=== PATIENT | male | born 1940 | race Caucasian/White ===

== ENCOUNTER → 2016-10-22 | Outpatient (CLI) | payer MEDICARE ==
[2016-10-22 10:49] LABS: Basophils # (A) 0.1 k/uL (0-0.2); Basophils % (A) 1 %; CH 35.7; CHCM 34.3; Eosinophils # (A) 0.2 k/uL (0-0.7); Eosinophils % (A) 3 %; HCT 49.4 % (39.0-53.0); HDW 2.75; HGB 16.6 gm/dL (13.0-17.5); Luc # (Auto) 0.22; Luc % (Auto) 3; Lymphocytes # (A) 2.3 k/uL (1.0-4.8); Lymphocytes % (A) 33 %; MCH 35.2 pg (25.0-35.0); MCHC 33.6 g/dL (31.0-37.0); MCV 104.8 fL (80.0-100.0); Macrocytosis Moderate; Mean Platelet Volume 7.9; Monocytes # (A) 0.5 k/uL (0-1.0); Monocytes % (A) 7 %; Neutrophils # (A) 3.5 k/uL (1.3-7.7); Neutrophils % (A) 52 %; RBC 4.72 m/uL (4.30-5.90); WBC 6.8 k/uL (3.8-10.6)
[2016-10-22 11:25] LABS: Appearance,Urine Clear (Clear); Bilirubin,Urine Negative (Negative); Glucose,Urine (UA) Negative (Negative); Ketones,Urine Negative (Negative); Leukocyte Esterase,Urine Negative (Negative); Nitrite,Urine Negative (Negative); Particle Count 337; Protein,Urine 1+ (Negative); RBC,Urine 1 /hpf (0-5); Specific Gravity,Urine 1.015 (1.001-1.035); UA Billing (MACRO vs. MICRO) MICRO; Urobilinogen,Urine <2.0 mg/dL (<2.0); WBC,Urine 1 /hpf (0-5)
[2016-10-22 11:34] LABS: Calcium 9.5 mg/dL (8.4-10.2); Magnesium 1.9 mg/dL (1.6-2.3); Phosphorous 4.1 mg/dL (2.5-4.5); Potassium 4.3 mmol/L (3.5-5.1); Total Bilirubin 0.9 mg/dL (0.2-1.3); Total Protein 7.4 g/dL (6.3-8.2)
[2016-10-22 11:43] LABS: % Iron Saturation 32.1 % (20-50)
== END | disposition home or self-care (01) ==
LOC: LABWHC1 10:12
PROVIDERS: ATTEND Internal Medicine Interventional Cardiology
DX: R60.0 Localized edema (principal)
CPT/HCPCS: 36415; 80053; 80061; 81001; 82306; 82728; 83540; 83550; 83735; 83880; 83970; 84100; 84550; 85025

== ENCOUNTER → 2016-10-28 | Outpatient (CLI) | payer MEDICARE ==
--- NOTE | 2016-10-29 07:48 | ECHOF ---
Referral Reason:Localized Edema R60.0 MEASUREMENTS -------- HEIGHT: 177.8 cm WEIGHT: 106.6 kg BP: 184/96 RVIDd: 3.1 cm (< 3.3) IVSd: 1.4 cm (0.6 - 1.1) LVIDd: 3.7 cm (3.9 - 5.3) LVPWd: 1.3 cm (0.6 - 1.1) IVSs: 1.9 cm LVIDs: 2.5 cm LVPWs: 1.8 cm LA Diam: 3.6 cm (2.7 - 3.8) LAESV Index (A-L): 18.67 ml/m Ao Diam: 3.1 cm (2.0 - 3.7) AV Cusp: 2.0 cm (1.5 - 2.6) MV EXCURSION: 9.957 mm (> 18.000) MV EF SLOPE: 20 mm/s (70 - 150) EPSS: 0.8 cm AV maxP.48 mmHg AV meanP.80 mmHg RAP: 5.00 mmHg RVSP: 41.89 mmHg FINDINGS -------- This was a technically difficult study with suboptimal views. The left ventricular size is normal. There is moderate concentric left ventricular hypertrophy. Overall left ventricular systolic function is mild-moderately impaired with, an EF between 40 - 45 %. Apical anterior LV wall motion is hypokinetic. Apical lateral LV wall motion is hypokinetic. Apical inferior LV wall motion is hypokinetic. Apical septum LV wall motion is hypokinetic. The right ventricle is normal in size. Normal LA size by volume 22+/-6 ml/m2. The right atrium is normal in size. 1.5mg of Definity was utilized for enhancement of images Aortic valve is trileaflet and is mildly thickened. Mild mitral annular calcification present. Mild tricuspid regurgitation present. There is mild pulmonary hypertension. The right ventricular systolic pressure, as measured by Doppler, is 41.89mmHg. Trace/mild (physiologic) pulmonic regurgitation. The aortic root size is normal. The inferior vena cava is mildly dilated. The pericardium is normal. CONCLUSIONS -------- 1. This was a technically difficult study with suboptimal views. 2. Normal LA size by volume 22+/-6 ml/m2. 3. 1.5mg of Definity was utilized for enhancement of images 4. Aortic valve is trileaflet and is mildly thickened. 5. Mild mitral annular calcification present. 6. Mild tricuspid regurgitation present. 7. There is mild pulmonary hypertension. 8. The right ventricular systolic pressure, as measured by Doppler, is 41.89mmHg. 9. Trace/mild (physiologic) pulmonic regurgitation. 10. The aortic root size is normal. 11. The inferior vena cava is mildly dilated. 12. The left ventricular size is normal. 13. The pericardium is normal. 14. There is moderate concentric left ventricular hypertrophy. 15. Overall left ventricular systolic function is mild-moderately impaired with, an EF between 40 - 45 %. 16. Apical anterior LV wall motion is hypokinetic. 17. Apical lateral LV wall motion is hypokinetic. 18. Apical inferior LV wall motion is hypokinetic. 19. Apical septum LV wall motion is hypokinetic. 20. The right ventricle is normal in size. TOWER OPERATOR: Tanisha Stearns RDCS
== END | disposition home or self-care (01) ==
LOC: RADECHMAIN 14:19
PROVIDERS: ATTEND Family Medicine
DX: I07.1 Rheumatic tricuspid insufficiency (principal); I35.8 Other nonrheumatic aortic valve disorders; I05.9 Rheumatic mitral valve disease, unspecified; I27.2 Other secondary pulmonary hypertension; I37.1 Nonrheumatic pulmonary valve insufficiency
CPT/HCPCS: C8929; Q9957; 93306

== ENCOUNTER 2016-12-27 12:59 | Emergency (ER) | payer OTHER, MEDICARE ==
[2016-12-27 13:16] LABS: Glucose,Whole Blood 146 mg/dL (75-99)
[2016-12-27 13:39] LABS: Basophils # (A) 0.1 k/uL (0-0.2); Basophils % (A) 1 %; CH 34.9; Eosinophils # (A) 0.2 k/uL (0-0.7); Eosinophils % (A) 3 %; HDW 2.65; HGB 16.5 gm/dL (13.0-17.5); Luc # (Auto) 0.19; Luc % (Auto) 3; Lymphocytes # (A) 1.8 k/uL (1.0-4.8); Lymphocytes % (A) 23 %; MCH 34.7 pg (25.0-35.0); MCHC 33.6 g/dL (31.0-37.0); MCV 103.4 fL (80.0-100.0); Macrocytosis Slight; Mean Platelet Volume 7.4; Monocytes # (A) 0.4 k/uL (0-1.0); Monocytes % (A) 6 %; Neutrophils # (A) 4.9 k/uL (1.3-7.7); Neutrophils % (A) 65 %; RBC 4.74 m/uL (4.30-5.90); RDW 14.7 % (11.5-15.5); WBC 7.5 k/uL (3.8-10.6)
[2016-12-27] MEDS ORDERED: RX INFO: IV CONTRAST WAS GIVEN 1 EACH MISC MISCELLANE PRN (13:44)
[2016-12-27 13:48] LABS: INR 1.2 (<1.2); Partial Thromboplastin Time 24.9 sec (22.0-30.0); Prothrombin Time 11.7 sec (9.0-12.0)
[2016-12-27 13:50] LABS: ALT 48 U/L (21-72); AST 50 U/L (17-59); Alcohol <10 mg/dL; Alkaline Phosphatase 67 U/L (38-126); Amylase 43 U/L (30-110); Anion Gap 10 mmol/L; Blood Urea Nitrogen 22 mg/dL (9-20); Calcium 8.8 mg/dL (8.4-10.2); Carbon Dioxide 23 mmol/L (22-30); Chloride 107 mmol/L (98-107); Glucose 142 mg/dL (74-99); Non-African American GFR(MDRD) 45 (>60 ml/min/1.73 sqM); Potassium 4.1 mmol/L (3.5-5.1); Sodium 140 mmol/L (137-145); Total Bilirubin 0.7 mg/dL (0.2-1.3); Total Protein 6.8 g/dL (6.3-8.2)
[2016-12-27 13:56] LABS: Appearance,Urine Clear (Clear); Bilirubin,Urine Negative (Negative); Glucose,Urine (UA) Negative (Negative); Ketones,Urine Negative (Negative); Leukocyte Esterase,Urine Negative (Negative); Nitrite,Urine Negative (Negative); PH, Urine 5.5 (5.0-8.0); Protein,Urine Negative (Negative); Specific Gravity,Urine 1.005 (1.001-1.035); UA Billing (MACRO vs. MICRO) CHEM; Urobilinogen,Urine <2.0 mg/dL (<2.0)
[2016-12-27 13:58] LABS: Creatine Kinase 158 U/L (55-170)
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
[2016-12-27 14:10] LABS: Troponin I <0.012 ng/mL (0.000-0.034)
[2016-12-27 14:15] LABS: Creatine Kinase MB 2.7 ng/mL (0.0-2.4)
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
[2016-12-27] MEDS ORDERED: HYDROmorphone 1 MG/ML 1 ML SYRINGE IVP STA ×4 (15:20→17:41)
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
[2016-12-27] MEDS ORDERED: IPRATROPIUM-ALBUTEROL 3 ML NEB INHALATION STA (17:46)
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
[2016-12-27 18:50] VITALS: BP 150/60; PULSE 88; RESP 18; TEMP 98
== END 2016-12-27 18:45 | disposition other institution (70) ==
LOC: EC 12:59
DX: S22.069A Unspecified fracture of T7-T8 vertebra, initial encounter for closed fracture (principal); S22.079A Unspecified fracture of T9-T10 vertebra, initial encounter for closed fracture; S27.321A Contusion of lung, unilateral, initial encounter; S27.892A Contusion of other specified intrathoracic organs, initial encounter; V89.2XXA Person injured in unspecified motor-vehicle accident, traffic, initial encounter; J44.9 Chronic obstructive pulmonary disease, unspecified; I51.7 Cardiomegaly; M54.2 Cervicalgia; I10 Essential (primary) hypertension; E78.5 Hyperlipidemia, unspecified; I51.9 Heart disease, unspecified; N28.9 Disorder of kidney and ureter, unspecified; Z95.0 Presence of cardiac pacemaker; Z79.82 Long term (current) use of aspirin; Z79.899 Other long term (current) drug therapy; Z88.2 Allergy status to sulfonamides; Z88.8 Allergy status to other drugs, medicaments and biological substances; Z95.5 Presence of coronary angioplasty implant and graft; Z87.891 Personal history of nicotine dependence
CPT/HCPCS: 36415; 94640; 93005; 86900; 86901; 80053; 82150; 82550; 82553; 83690; 84484; 85025; 85610; 85730; 86850; 81003; 80306; 80320; 71010; 72020; 72170; 71260; 74177; 99291; 96374; 96376; Q9967; J1170

== ENCOUNTER → 2017-04-01 | Outpatient (CLI) | payer MEDICARE ==
[2017-04-01 11:56] LABS: ALT 45 U/L (21-72); AST 43 U/L (17-59); Alkaline Phosphatase 91 U/L (38-126); Anion Gap 12 mmol/L; Blood Urea Nitrogen 18 mg/dL (9-20); Calcium 9.3 mg/dL (8.4-10.2); Carbon Dioxide 25 mmol/L (22-30); Chloride 106 mmol/L (98-107); Cholesterol 120 mg/dL (<200); Glucose 122 mg/dL (74-99); HDL Cholesterol 47 mg/dL (40-60); Magnesium 1.8 mg/dL (1.6-2.3); Non-African American GFR(MDRD) 50 (>60 ml/min/1.73 sqM); Phosphorous 4.6 mg/dL (2.5-4.5); Potassium 4.5 mmol/L (3.5-5.1); Sodium 143 mmol/L (137-145); Total Bilirubin 0.4 mg/dL (0.2-1.3)
[2017-04-01 11:58] LABS: Appearance,Urine Clear (Clear); Bilirubin,Urine Negative (Negative); Glucose,Urine (UA) Negative (Negative); Ketones,Urine Negative (Negative); Leukocyte Esterase,Urine Negative (Negative); Mucus,Urine Rare /hpf; Nitrite,Urine Negative (Negative); PH, Urine 5.5 (5.0-8.0); Particle Count 638; Protein,Urine 1+ (Negative); Specific Gravity,Urine 1.014 (1.001-1.035); UA Billing (MACRO vs. MICRO) MICRO; Urobilinogen,Urine <2.0 mg/dL (<2.0); WBC,Urine 1 /hpf (0-5)
[2017-04-01 12:33] LABS: Basophils # (A) 0.1 k/uL (0-0.2); Basophils % (A) 1 %; CH 35.1; CHCM 32.3; Eosinophils # (A) 0.3 k/uL (0-0.7); Eosinophils % (A) 5 %; HCT 49.5 % (39.0-53.0); HDW 2.65; HGB 15.1 gm/dL (13.0-17.5); Luc # (Auto) 0.16; Luc % (Auto) 2; Lymphocytes # (A) 2.2 k/uL (1.0-4.8); Lymphocytes % (A) 32 %; MCH 33.4 pg (25.0-35.0); MCHC 30.6 g/dL (31.0-37.0); MCV 109.4 fL (80.0-100.0); Macrocytosis Marked; Mean Platelet Volume 7.9; Monocytes # (A) 0.4 k/uL (0-1.0); Monocytes % (A) 6 %; Neutrophils # (A) 3.8 k/uL (1.3-7.7); Neutrophils % (A) 55 %; RBC 4.53 m/uL (4.30-5.90); RDW 15.2 % (11.5-15.5); WBC 6.9 k/uL (3.8-10.6); WBC (Perox) 6.56
[2017-04-01 14:15] LABS: Manual Review Performed
[2017-04-01 15:28] LABS: Iron Saturation 25.37 (15.00-50.00)
== END | disposition home or self-care (01) ==
LOC: LABWHC1 10:59
PROVIDERS: ATTEND Internal Medicine Interventional Cardiology
DX: E55.9 Vitamin D deficiency, unspecified (principal); E21.3 Hyperparathyroidism, unspecified; M10.9 Gout, unspecified; N39.0 Urinary tract infection, site not specified; D63.1 Anemia in chronic kidney disease; N18.3 Chronic kidney disease, stage 3 (moderate); E78.2 Mixed hyperlipidemia
CPT/HCPCS: 36415; 80053; 80061; 81001; 82306; 82728; 83540; 83550; 83735; 83970; 84100; 84550; 85025

== ENCOUNTER → 2017-11-11 | Outpatient (CLI) | payer MEDICARE ==
[2017-11-11 10:36] LABS: Basophils % (A) 0 %; Eosinophils # (A) 0.3 k/uL (0-0.7); Eosinophils % (A) 4 %; HCT 45.8 % (39.0-53.0); HGB 15.6 gm/dL (13.0-17.5); Lymphocytes # (A) 1.8 k/uL (1.0-4.8); Lymphocytes % (A) 28 %; MCH 34.8 pg (25.0-35.0); MCHC 34.2 g/dL (31.0-37.0); MCV 101.7 fL (80.0-100.0); Macrocytosis Slight; Mean Platelet Volume 7.6; Monocytes # (A) 0.5 k/uL (0-1.0); Monocytes % (A) 7 %; Neutrophils # (A) 3.7 k/uL (1.3-7.7); Neutrophils % (A) 58 %; Platelet Count 153 k/uL (150-450); RDW 14.6 % (11.5-15.5); WBC 6.3 k/uL (3.8-10.6)
[2017-11-11 10:43] LABS: Appearance,Urine Clear (Clear); Bilirubin,Urine Negative (Negative); Blood,Urine Negative (Negative); Color,Urine Yellow; Glucose,Urine (UA) Negative (Negative); Ketones,Urine Negative (Negative); Leukocyte Esterase,Urine Negative (Negative); Nitrite,Urine Negative (Negative); Protein,Urine Trace (Negative); Specific Gravity,Urine 1.011 (1.001-1.035); Urobilinogen,Urine <2.0 mg/dL (<2.0)
[2017-11-11 10:55] LABS: Calcium 9.3 mg/dL (8.4-10.2); Magnesium 1.7 mg/dL (1.6-2.3); Phosphorus 4.5 mg/dL (2.5-4.5); Potassium 4.5 mmol/L (3.5-5.1); Total Bilirubin 0.5 mg/dL (0.2-1.3); Total Protein 6.6 g/dL (6.3-8.2); Uric Acid 5.5 mg/dL (3.5-8.5)
[2017-11-11 17:32] LABS: Iron Saturation 16.94 (15.00-50.00)
[2017-11-11 17:39] LABS: Vitamin D 25 Hydroxy 34.5 ng/mL (30.0-100.0)
[2017-11-11 18:12] LABS: Parathyroid Hormone Intact 57.5 pg/mL (14.0-72.0)
== END | disposition home or self-care (01) ==
LOC: LABWHC1 09:22
PROVIDERS: ATTEND Internal Medicine Interventional Cardiology
DX: Z00.00 Encounter for general adult medical examination without abnormal findings (principal); E78.2 Mixed hyperlipidemia; N18.3 Chronic kidney disease, stage 3 (moderate); D64.9 Anemia, unspecified; E55.9 Vitamin D deficiency, unspecified; N25.81 Secondary hyperparathyroidism of renal origin; M10.9 Gout, unspecified; N39.0 Urinary tract infection, site not specified
CPT/HCPCS: 36415; 80053; 80061; 81003; 82306; 82728; 83540; 83550; 83735; 83970; 84100; 84153; 84550; 85025

== ENCOUNTER → 2018-01-22 | Outpatient (CLI) | payer OTHER ==
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
--- NOTE | 2018-01-22 13:07 | CT ---
EXAMINATION TYPE: CT lumbar spine wo con DATE OF EXAM: 01/22/2018 COMPARISON: CT 12/27/2016 HISTORY: 77-year-old male complains of back pain. TECHNIQUE: Contiguous axial scanning of the lumbar spine without IV contrast. Coronal and sagittal re constructions performed. CT DLP: 1818.3 mGycm Automated exposure control for dose reduction was used. FINDINGS: Vertebral body heights are preserved and alignment is maintained. 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 Degenerative disc disease. Disc vacuum is present at L4-L5 and discussed by complexes are present pos teriorly at L1-L2, L2-L4, and L4-L5. Hypertrophic facet arthropathy is present. Changes result in mild bilateral neural foraminal stenoses at L5-S1 and mild narrowing of the spinal canal at both L1-L2 and L2-L4. Degenerative bridging ankylosis at the right SI joint and some mild degenerative spurring at the left SI joint. Fusiform ectasia of the infrarenal abdominal aorta at 2.5 cm. IMPRESSION: 1.No vertebral compression collapse or malalignment. [id number] multilevel degenerative disc di sease. Additional facet arthropathy and Baastrup's disease. 2. Mild narrowing of the spinal canal from disc osteophyte complex formation at L1-L2 and L2-L4 and m ild bilateral neuroforaminal stenosis at L5-S1.
== END | disposition home or self-care (01) ==
LOC: RADCTMAIN 01-20 11:18
PROVIDERS: ATTEND Neurological Surgery
DX: M48.061 Spinal stenosis, lumbar region without neurogenic claudication (principal); M99.73 Connective tissue and disc stenosis of intervertebral foramina of lumbar region; M51.36 Other intervertebral disc degeneration, lumbar region; M46.86 Other specified inflammatory spondylopathies, lumbar region; M48.26 Kissing spine, lumbar region; M25.78 Osteophyte, vertebrae; S22.079G Unspecified fracture of T9-T10 vertebra, subsequent encounter for fracture with delayed healing; M99.72 Connective tissue and disc stenosis of intervertebral foramina of thoracic region; Z98.1 Arthrodesis status
CPT/HCPCS: 82565; 84520; 72130; 72131; 36415; Q9967

== ENCOUNTER → 2018-03-09 | Outpatient (CLI) | payer MEDICARE ==
[2018-03-09 11:56] LABS: Basophils % (A) 1 %; Eosinophils # (A) 0.3 k/uL (0-0.7); Eosinophils % (A) 5 %; HCT 48.2 % (39.0-53.0); HGB 15.7 gm/dL (13.0-17.5); Lymphocytes # (A) 1.7 k/uL (1.0-4.8); Lymphocytes % (A) 30 %; MCH 33.9 pg (25.0-35.0); MCHC 32.5 g/dL (31.0-37.0); MCV 104.1 fL (80.0-100.0); Macrocytosis Slight; Mean Platelet Volume 7.1; Monocytes # (A) 0.4 k/uL (0-1.0); Monocytes % (A) 7 %; Neutrophils # (A) 3.1 k/uL (1.3-7.7); Neutrophils % (A) 55 %; Platelet Count 157 k/uL (150-450); RBC 4.63 m/uL (4.30-5.90); RDW 14.2 % (11.5-15.5); WBC 5.7 k/uL (3.8-10.6)
[2018-03-09 12:04] LABS: Appearance,Urine Clear (Clear); Bilirubin,Urine Negative (Negative); Blood,Urine Negative (Negative); Color,Urine Yellow; Glucose,Urine (UA) Negative (Negative); Ketones,Urine Negative (Negative); Leukocyte Esterase,Urine Negative (Negative); Nitrite,Urine Negative (Negative); Protein,Urine 1+ (Negative); Specific Gravity,Urine 1.014 (1.001-1.035); Urobilinogen,Urine <2.0 mg/dL (<2.0); WBC,Urine 3 /hpf (0-5)
[2018-03-09 12:18] LABS: Albumin 3.7 g/dL (3.5-5.0); Calcium 9.3 mg/dL (8.4-10.2); Magnesium 1.9 mg/dL (1.6-2.3); Phosphorus 3.7 mg/dL (2.5-4.5); Potassium 4.7 mmol/L (3.5-5.1); Total Bilirubin 0.6 mg/dL (0.2-1.3); Total Protein 6.6 g/dL (6.3-8.2); Uric Acid 6.6 mg/dL (3.5-8.5)
[2018-03-09 16:48] LABS: Iron Saturation 37.92 (15.00-50.00)
[2018-03-09 16:55] LABS: Vitamin D 25 Hydroxy 32.3 ng/mL (30.0-100.0)
[2018-03-09 17:07] LABS: Folate, Serum >24.0 ng/mL
[2018-03-09 18:11] LABS: Parathyroid Hormone Intact 71.7 pg/mL (14.0-72.0)
== END | disposition home or self-care (01) ==
LOC: LABWHC1 10:30
PROVIDERS: ATTEND Internal Medicine Nephrology
DX: N39.0 Urinary tract infection, site not specified (principal); E55.9 Vitamin D deficiency, unspecified; E21.3 Hyperparathyroidism, unspecified; M10.9 Gout, unspecified; N18.3 Chronic kidney disease, stage 3 (moderate); E11.9 Type 2 diabetes mellitus without complications; I50.32 Chronic diastolic (congestive) heart failure; E78.2 Mixed hyperlipidemia; D50.9 Iron deficiency anemia, unspecified
CPT/HCPCS: 36415; 80053; 80061; 81001; 82306; 82607; 82728; 82746; 83540; 83550; 83735; 83970; 84100; 84550; 85025

== ENCOUNTER → 2018-03-26 | Outpatient (CLI) | payer OTHER ==
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
== END | disposition home or self-care (01) ==
LOC: RADCTMAIN 14:48
PROVIDERS: ATTEND Psychiatry & Neurology Vascular Neurology
DX: M50.30 Other cervical disc degeneration, unspecified cervical region (principal)
CPT/HCPCS: 72125

== ENCOUNTER → 2018-04-06 | Outpatient (CLI) | payer OTHER ==
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
== END | disposition home or self-care (01) ==
LOC: NEUROMAIN 13:23
PROVIDERS: ATTEND Psychiatry & Neurology Vascular Neurology
DX: S09.90XA Unspecified injury of head, initial encounter (principal)
CPT/HCPCS: 95816

== ENCOUNTER → 2018-11-04 | Outpatient (CLI) | payer MEDICARE ==
[2018-11-04 19:03] LABS: Iron Saturation 30.23 (15.00-50.00)
[2018-11-04 19:12] LABS: Vitamin D 25 Hydroxy 50.7 ng/mL (30.0-100.0)
[2018-11-04 19:22] LABS: Magnesium 1.8 mg/dL (1.5-2.4); Phosphorus 3.5 mg/dL (2.4-5.1); Uric Acid 4.8 mg/dL (3.7-8.7)
[2018-11-04 19:57] LABS: Parathyroid Hormone Intact 66.8 pg/mL (14.0-72.0)
[2018-11-04 21:17] LABS: Creatinine,Urine Random 140.1 mg/dL
[2018-11-04 21:43] LABS: Total Protein,Urine Random 36.2 mg/dL (0.0-13.5)
[2018-11-05 15:36] LABS: Albumin 4.2 g/dL (3.80-4.90); Anion Gap 13.3 mmol/L (4.00-12.00); Calcium 9.3 mg/dL (8.7-10.3); Carbon Dioxide 20.7 mmol/L (21.6-31.8); Potassium 4.4 mmol/L (3.5-5.5)
== END | disposition home or self-care (01) ==
LOC: LABWHC1 12:33
PROVIDERS: ATTEND Internal Medicine Interventional Cardiology
DX: N39.0 Urinary tract infection, site not specified (principal); E78.2 Mixed hyperlipidemia; E55.9 Vitamin D deficiency, unspecified; N25.81 Secondary hyperparathyroidism of renal origin; D63.1 Anemia in chronic kidney disease; N18.3 Chronic kidney disease, stage 3 (moderate); D50.9 Iron deficiency anemia, unspecified; M10.9 Gout, unspecified
CPT/HCPCS: 36415; 80048; 82040; 82306; 82570; 82728; 83540; 83550; 83735; 83970; 84100; 84156; 84550

== ENCOUNTER → 2019-01-27 | Outpatient (CLI) | payer OTHER, MEDICARE ==
[2019-01-27 12:56] LABS: Potassium 4.6 mmol/L (3.5-5.1)
[2019-01-27 13:17] LABS: HCT 47.5 % (39.0-53.0); HGB 15.2 gm/dL (13.0-17.5); MCV 106.2 fL (80.0-100.0); Macrocytosis Moderate; Mean Platelet Volume 8.1; Platelet Count 140 k/uL (150-450); RBC 4.48 m/uL (4.30-5.90); WBC 6.8 k/uL (3.8-10.6)
== END | disposition home or self-care (01) ==
LOC: LABPAT 11:34
PROVIDERS: ATTEND Internal Medicine Cardiovascular Disease
DX: Z01.812 Encounter for preprocedural laboratory examination (principal); I25.10 Atherosclerotic heart disease of native coronary artery without angina pectoris; I25.5 Ischemic cardiomyopathy
CPT/HCPCS: 36415; 80051; 82565; 84520; 85027

== ENCOUNTER 2019-02-03 11:17 | Day surgery (SDC) | payer MEDICARE, OTHER ==
[2019-01-28 16:38] VITALS: BMI 34.2
[~2019-02-03 11:17] MED LIST: SODIUM CHLORIDE 0.9% 1,000 ML IV SCH; ceFAZolin 1,000 MG in SODIUM CHLORIDE 0.9% IRRIGATIO 250 ML IRRIGATION ONE
[2019-02-03 11:45] VITALS: PULSE 65; TEMP 97.6
[2019-02-03 11:46] LABS: Glucose,Whole Blood 105 mg/dL (75-99)
[2019-02-03] MEDS ORDERED: SODIUM CHLORIDE 0.9% 1,000 ML IV ONE (11:48)
[2019-02-03] MEDS ORDERED: LIDOCAINE 1% INJ 10MG/ML (20 ML MDV) ONE (12:14)
[2019-02-03] MEDS ORDERED: fentaNYL (PF) 50 MCG/ML 2 ML AMP ONE (12:14)
[2019-02-03] MEDS: MIDAZOLAM (PF) 2 MG/2 ML VIAL IV ONE ×2 (12:24→12:36)
[2019-02-03] MEDS: fentaNYL (PF) 50 MCG/ML 2 ML AMP IV ONE ×3 (12:30→13:03)
[2019-02-03] MEDS ORDERED: LIDOCAINE 1% INJ 10MG/ML (20 ML MDV) SQ ONE ×2 (12:33→12:39)
[2019-02-03] MEDS ORDERED: ACETAMINOPHEN TAB 325 MG TAB PO PRN (13:03)
--- NOTE | 2019-02-03 13:16 | P.PCN ---
Date of Procedure: 02/03/19 Preoperative Diagnosis: History of permanent pacemaker, battery depletion Postoperative Diagnosis: The same Procedure(s) Performed: Battery replacement Description of Procedure: HISTORY: This is a 78-year-old gentleman with history of high degree of block, status post permanent pacemaker implantation, who has reached LENNY. Patient is advised to have replacement of the battery CONSENT: I have discussed the risks and benefits as related to the above mentioned procedure and both sedation/analgesia as well as necessary blood product administration. The patient has indicated understanding and acceptance of the risks of the procedure discussed. PROCEDURE: Patient was brought to the lab in a fasting state. Patient was given IV Versed and fentanyl for sedation. The skin over the existing pulse generator was infiltrated with lidocaine. An incision was made in the skin and was deepened until the pectoral fascia was exposed. Hemostasis was obtained. The existing pulse generator was pulled out of the pocket. The leads were disconnected and were checked for thresholds. Conscious Sedation: Versed 1 mg Fentanyl 50 g Duration 28minutes THRESHOLDS: ATRIAL: The minimum patient threshold is 1.5 at pulse width of 0.5 ms. The impedance is 497 ohms. The P waves are 3.1 VENTRICULAR: The minimal patient threshold is 1 V at a pulse width of 0.5 ms. The impedance is 726 ohms R-wave: 3.7 THE LEADS: ATRIAL:. This is manufactured by [employer]. Model number is 5076-45. Serial number is [id number] VENTRICULAR:. This is manufactured by [employer]. Model number is 5076-58. The serial number is [id number] THE EXPLANTED DEVICE: This is manufactured by [employer]. Model number is [id number] and the serial number is [id number] THE NEW DEVICE: This is manufactured by [employer]. Model number is [id number] and the serial number is [id number]. The leads were then connected to a new pulse generator. Pacemaker seems to function normally. The pocket was irrigated with antibiotics. The pocket was closed in the usual fashion. Pectoral fascia was closed with 2-0 Prolene, the subcutaneous tissue was closed with 3-0 Prolene and the skin was closed with 4-0 Prolene. Patient tolerated the procedure well . Patient will be monitored on the telemetry unit for 2-3 hours. If stable patient be discharged home later today. PLAN: Patient will be monitored for the next few hours. If stable patient be discharged home. Patient will continue home medication and also prophylactic antibiotics FALLOW UP: With the Dr. Lares in about one week
[2019-02-03] MEDS ORDERED: IOPAMIDOL-250 50ML BTL IV ONE (13:20)
--- NOTE | 2019-02-03 13:31 | P.PCN ---
Date of Procedure: 02/03/19 Preoperative Diagnosis: Left arm pain since pacemaker insertion and some swelling Postoperative Diagnosis: Patent axillary and subclavian vein Procedure(s) Performed: Venogram of the left arm Description of Procedure: This patient is complaining of left arm pain and some swelling since insertion of the pacemaker. Patient is advised to have a venogram to assess the patency of the axillary and subcu and vein. Procedure note: About 10 mL of contrast was injected through the existing intravenous line in the left arm. The axillary and the subclavian veins were imaged with fluoroscopy. Patient tolerated the procedure well. Impression: patent subclavian and axillary vein without any evidence of stenosis or obstruction
[2019-02-03 15:30] VITALS: RESP 20
[2019-02-03 15:49] VITALS: BP 145/69
[2019-02-03] MEDS ORDERED: CEPHALEXIN 500 MG CAP PO SCH (16:00)
[2019-02-03] MEDS ORDERED: DOXAZOSIN 4 MG TAB PO SCH (21:00)
[2019-02-03] MEDS ORDERED: PREGABALIN 50 MG CAP PO SCH (21:00)
[2019-02-03] MEDS ORDERED: BACLOFEN 10 MG TAB PO SCH (21:00)
[2019-02-03] MEDS ORDERED: NON-FORMULARY DRUG (Hydralazine Hcl [Apresoline] 100 MG) PO SCH (21:00)
[2019-02-03] MEDS ORDERED: LABETALOL HCL 600 MG PO SCH (21:00)
[2019-02-03] MEDS ORDERED: LISINOPRIL 20 MG TAB PO SCH (21:00)
[2019-02-03] MEDS ORDERED: NON-FORMULARY DRUG (Aspirin Ec 81 MG) PO SCH (21:00)
[2019-02-04] MEDS ORDERED: PANTOPRAZOLE 40 MG TABLET PO SCH (07:30)
[2019-02-04] MEDS ORDERED: FERROUS SULFATE 325 MG TAB PO SCH (09:00)
[2019-02-04] MEDS ORDERED: ALLOPURINOL 100 MG TAB PO SCH (09:00)
[2019-02-04] MEDS ORDERED: METFORMIN PO SCH (09:00)
[2019-02-04] MEDS ORDERED: ATORVASTATIN 20 MG TAB PO SCH (09:00)
[2019-02-04] MEDS ORDERED: MULTIVITAMINS, THERA 1 EACH TAB PO SCH (09:00)
[2019-02-04] MEDS ORDERED: FUROSEMIDE 10 MG TAB PO SCH (09:00)
[2019-02-04] MEDS ORDERED: NON-FORMULARY DRUG (Ubidecarenone [Co Q-10] 100 MG) PO SCH (09:00)
[2019-02-04] MEDS ORDERED: EZETIMIBE 10 MG TAB PO SCH (09:00)
[2019-02-04] MEDS ORDERED: NON-FORMULARY DRUG (Vitamin B Complex [Vitamin B Complex] 1 EACH) PO SCH (09:00)
[2019-02-04] MEDS ORDERED: FOLIC ACID 1 MG TAB PO SCH (09:00)
== END 2019-02-03 16:22 | disposition home or self-care (01) ==
LOC: CATHEP 11:17
PROVIDERS: ATTEND Internal Medicine Cardiovascular Disease
DX: Z45.010 Encounter for checking and testing of cardiac pacemaker pulse generator [battery] (principal); I25.10 Atherosclerotic heart disease of native coronary artery without angina pectoris; Z87.891 Personal history of nicotine dependence; Z79.82 Long term (current) use of aspirin; Z79.899 Other long term (current) drug therapy; Z95.5 Presence of coronary angioplasty implant and graft; I25.5 Ischemic cardiomyopathy; I12.9 Hypertensive chronic kidney disease with stage 1 through stage 4 chronic kidney disease, or unspecified chronic kidney disease; N18.9 Chronic kidney disease, unspecified; E78.2 Mixed hyperlipidemia
CPT/HCPCS: 33228; C1785; J0690 ×2; J2001; J3010; Q9966; J2250

== ENCOUNTER → 2019-02-21 | Outpatient (CLI) | payer MEDICARE, OTHER ==
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
== END | disposition home or self-care (01) ==
LOC: RADCTMAIN 16:04
PROVIDERS: ATTEND Neurological Surgery
DX: Z09 Encounter for follow-up examination after completed treatment for conditions other than malignant neoplasm (principal); Z98.890 Other specified postprocedural states
CPT/HCPCS: 72128

== ENCOUNTER → 2019-03-08 | Outpatient (CLI) | payer MEDICARE ==
[2019-03-08 10:18] LABS: Basophils # (A) 0.1 k/uL (0-0.2); Basophils % (A) 2 %; Eosinophils # (A) 0.2 k/uL (0-0.7); Eosinophils % (A) 4 %; HCT 49.1 % (39.0-53.0); HGB 15.8 gm/dL (13.0-17.5); Lymphocytes # (A) 1.6 k/uL (1.0-4.8); Lymphocytes % (A) 28 %; MCH 33.2 pg (25.0-35.0); MCHC 32.2 g/dL (31.0-37.0); MCV 103.3 fL (80.0-100.0); Macrocytosis Slight; Mean Platelet Volume 7.7; Monocytes # (A) 0.4 k/uL (0-1.0); Monocytes % (A) 7 %; Neutrophils # (A) 3.1 k/uL (1.3-7.7); Neutrophils % (A) 56 %; Platelet Count 126 k/uL (150-450); RBC 4.76 m/uL (4.30-5.90); RDW 14.1 % (11.5-15.5); WBC 5.5 k/uL (3.8-10.6)
[2019-03-08 10:35] LABS: Appearance,Urine Clear (Clear); Bilirubin,Urine Negative (Negative); Blood,Urine Negative (Negative); Color,Urine Yellow; Glucose,Urine (UA) Negative (Negative); Ketones,Urine Negative (Negative); Leukocyte Esterase,Urine Negative (Negative); Nitrite,Urine Negative (Negative); PH, Urine 5.5 (5.0-8.0); Protein,Urine Trace (Negative); Specific Gravity,Urine 1.009 (1.001-1.035); Urobilinogen,Urine <2.0 mg/dL (<2.0)
[2019-03-08 17:01] LABS: African American GFR (CKD) 51.3 (60.0-200.0); Albumin 4.1 g/dL (3.80-4.90); Anion Gap 10.5 mmol/L (4.00-12.00); BUN/Creat Ratio 14.67 Ratio (12.00-20.00); Carbon Dioxide 26.5 mmol/L (21.6-31.8); Chol/HDL Ratio 2.63; LDL Cholesterol,Calculated 35.2 mg/dL (0.0-131.0); Magnesium 1.8 mg/dL (1.5-2.4); Phosphorus 3.7 mg/dL (2.4-5.1); Potassium 4.4 mmol/L (3.5-5.5); Uric Acid 4.9 mg/dL (3.7-8.7); VLDL Calculation 34.8 mg/dL (5.00-40.00)
[2019-03-08 17:06] LABS: Iron Saturation 28.96 (15.00-50.00)
[2019-03-08 17:14] LABS: Ferritin 242.5 ng/mL (22.0-322.0)
[2019-03-08 18:40] LABS: Creatinine,Urine Random 54.7 mg/dL
[2019-03-08 18:47] LABS: Total Protein,Urine Random 18.7 mg/dL (0.0-13.5)
== END | disposition home or self-care (01) ==
LOC: LABWHC1 09:42
PROVIDERS: ATTEND Nurse Practitioner Adult Health
DX: N18.3 Chronic kidney disease, stage 3 (moderate) (principal); D63.1 Anemia in chronic kidney disease; R80.9 Proteinuria, unspecified; N39.0 Urinary tract infection, site not specified; E55.9 Vitamin D deficiency, unspecified; M10.9 Gout, unspecified; N25.81 Secondary hyperparathyroidism of renal origin; E78.2 Mixed hyperlipidemia
CPT/HCPCS: 36415; 80048; 80061; 81003; 82040; 82570; 82728; 83540; 83550; 83735; 83970; 84100; 84156; 84450; 84460; 84550; 85025

== ENCOUNTER → 2019-04-01 | Outpatient (CLI) | payer MEDICARE ==
[2019-04-01 17:36] LABS: Hemoglobin A1C 6.3 % (4.0-6.0)
== END | disposition home or self-care (01) ==
LOC: LABWHC1 10:13
PROVIDERS: ATTEND Family Medicine
DX: Z00.00 Encounter for general adult medical examination without abnormal findings (principal); I10 Essential (primary) hypertension; E07.9 Disorder of thyroid, unspecified; E11.22 Type 2 diabetes mellitus with diabetic chronic kidney disease; E78.2 Mixed hyperlipidemia; N52.01 Erectile dysfunction due to arterial insufficiency; Z12.5 Encounter for screening for malignant neoplasm of prostate
CPT/HCPCS: 36415; 83036; 84153; 84439; 84443

== ENCOUNTER → 2020-01-26 | Outpatient (CLI) | payer MEDICARE ==
[2020-01-26 19:49] LABS: African American GFR (CKD) 47.1 (60.0-200.0); Albumin 4.1 g/dL (3.80-4.90); Albumin/Globulin Ratio 1.78 (1.60-3.17); Anion Gap 6.3 mmol/L (4.00-12.00); BUN/Creat Ratio 16.88 Ratio (12.00-20.00); Calcium 9.3 mg/dL (8.7-10.3); Carbon Dioxide 29.7 mmol/L (21.6-31.8); Chol/HDL Ratio 2.37; Globulin 2.3 g/dL (1.6-3.3); Non-African American GFR(CKD) 40.7 (60.0-200.0); Potassium 4.6 mmol/L (3.5-5.5); Total Bilirubin 0.6 mg/dL (0.3-1.2); Total Protein 6.4 g/dL (6.2-8.2)
== END | disposition home or self-care (01) ==
LOC: LABWHC1 11:24
PROVIDERS: ATTEND Internal Medicine Interventional Cardiology
DX: E78.2 Mixed hyperlipidemia (principal)
CPT/HCPCS: 36415; 80053; 80061

== ENCOUNTER → 2020-03-29 | Outpatient (CLI) | payer MEDICARE ==
[2020-03-29 11:50] LABS: Appearance,Urine Clear (Clear); Bilirubin,Urine Negative (Negative); Blood,Urine Negative (Negative); Color,Urine Yellow; Glucose,Urine (UA) Negative (Negative); Ketones,Urine Negative (Negative); Leukocyte Esterase,Urine Negative (Negative); Nitrite,Urine Negative (Negative); PH, Urine 5.5 (5.0-8.0); Protein,Urine Trace (Negative); Specific Gravity,Urine 1.017 (1.001-1.035); Urobilinogen,Urine <2.0 mg/dL (<2.0)
[2020-03-29 11:52] LABS: Basophils % (A) 1 %; Eosinophils # (A) 0.2 k/uL (0-0.7); Eosinophils % (A) 3 %; HCT 50.7 % (39.0-53.0); HGB 15.9 gm/dL (13.0-17.5); Lymphocytes # (A) 1.9 k/uL (1.0-4.8); Lymphocytes % (A) 29 %; MCH 33.7 pg (25.0-35.0); MCHC 31.3 g/dL (31.0-37.0); MCV 107.8 fL (80.0-100.0); Macrocytosis Moderate; Mean Platelet Volume 7.9; Monocytes # (A) 0.4 k/uL (0-1.0); Monocytes % (A) 6 %; Neutrophils % (A) 59 %; Platelet Count 133 k/uL (150-450); RBC 4.71 m/uL (4.30-5.90); WBC 6.7 k/uL (3.8-10.6)
[2020-03-29 11:59] LABS: Protein/Creatinine Ratio,Urine 0.238
[2020-03-29 21:40] LABS: % Iron Saturation 20.75 (15.00-50.00); African American GFR (CKD) 50.9 (60.0-200.0); Albumin 4.1 g/dL (3.80-4.90); Albumin/Globulin Ratio 1.64 (1.60-3.17); Anion Gap 10.4 mmol/L (4.00-12.00); BUN/Creat Ratio 16.67 Ratio (12.00-20.00); Calcium 9.3 mg/dL (8.7-10.3); Carbon Dioxide 24.6 mmol/L (21.6-31.8); Chol/HDL Ratio 2.84; Globulin 2.5 g/dL (1.6-3.3); LDL Cholesterol,Calculated 48.4 mg/dL (0.0-131.0); Magnesium 1.8 mg/dL (1.5-2.4); Phosphorus 3.7 mg/dL (2.4-5.1); Potassium 4.6 mmol/L (3.5-5.5); Total Bilirubin 0.5 mg/dL (0.2-1.2); Total Protein 6.6 g/dL (6.2-8.2); Uric Acid 6.1 mg/dL (3.7-8.7); VLDL Calculation 30.6 mg/dL (5.00-40.00)
[2020-03-29 21:46] LABS: Ferritin 256.2 ng/mL (22.0-322.0)
== END | disposition home or self-care (01) ==
LOC: LABWHC1 10:11
PROVIDERS: ATTEND Internal Medicine Interventional Cardiology
DX: Z00.00 Encounter for general adult medical examination without abnormal findings (principal); N18.30 Chronic kidney disease, stage 3 unspecified; D63.1 Anemia in chronic kidney disease; L65.9 Nonscarring hair loss, unspecified; L91.8 Other hypertrophic disorders of the skin; L82.1 Other seborrheic keratosis; L21.8 Other seborrheic dermatitis; L57.0 Actinic keratosis; D18.01 Hemangioma of skin and subcutaneous tissue; E55.9 Vitamin D deficiency, unspecified; R80.9 Proteinuria, unspecified; N39.0 Urinary tract infection, site not specified; M10.9 Gout, unspecified; N25.81 Secondary hyperparathyroidism of renal origin
CPT/HCPCS: 36415; 80053; 80061; 81003; 82570; 82728; 83540; 83550; 83735; 83970; 84100; 84156; 84439; 84443; 84550; 85025

== ENCOUNTER → 2020-11-19 | Outpatient (CLI) | payer OTHER, MEDICARE ==
[2020-11-19 10:47] VITALS: BP 171/87; PULSE 67; RESP 16; TEMP 97.5
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
== END ==
LOC: PNWHC3 10:17
PROVIDERS: ATTEND Specialist
DX: M51.36 Other intervertebral disc degeneration, lumbar region (principal); M47.816 Spondylosis without myelopathy or radiculopathy, lumbar region; E78.5 Hyperlipidemia, unspecified; I10 Essential (primary) hypertension; Z79.899 Other long term (current) drug therapy; Z88.2 Allergy status to sulfonamides; Z88.8 Allergy status to other drugs, medicaments and biological substances; Z87.891 Personal history of nicotine dependence
CPT/HCPCS: 99211

== ENCOUNTER → 2020-11-30 | Outpatient (CLI) | payer OTHER, MEDICARE ==
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
--- NOTE | 2020-12-01 11:36 | CT ---
EXAMINATION TYPE: CT chest wo con DATE OF EXAM: 11/30/2020 COMPARISON: 12/27/2016 HISTORY: Solitary pulmonary nodule and shortness of breath. CT DLP: 563.7 mGycm, Automated exposure control for dose reduction was used. CONTRAST: Performed injected with 0 mL of Isovue 300. TECHNIQUE: Axial images were obtained at 5 mm thick sections. Reconstructed images are reviewed on [employer] computer in the coronal plane. FINDINGS: Portion of the thyroid visualized is normal. 0.8 cm nodule within the periphery of the posterior lateral left lung base above the diaphragm. Given measurement error, this is stable from 2017. Advanced emphysematous changes are present. No enlarged mediastinal or hilar adenopathy is evident. Small scattered lymph nodes are within the m ediastinum. The ascending aorta diameter at the level of the main pulmonary artery is 3.6 cm. The ma in pulmonary artery diameter at the bifurcation is 2.[address] sections are obtained through the upper abdomen. Scattered granulomata within the spleen. There are postsurgical changes to the thoracic spine. IMPRESSIONS: 1. Stable posterior lateral left lung nodule. 2. Advanced emphysematous changes
== END | disposition home or self-care (01) ==
LOC: RADCTMAIN 15:28
PROVIDERS: ATTEND Family Medicine
DX: R91.1 Solitary pulmonary nodule (principal); J43.9 Emphysema, unspecified
CPT/HCPCS: 71250

== ENCOUNTER → 2020-12-07 | Day surgery (SDC) | payer OTHER ==
[2020-12-05 10:07] VITALS: BMI 32.8
[~2020-12-07] MED LIST changes: +LACTATED RINGERS 1,000 ML IV SCH; +LIDOCAINE 1% (10MG/ML) FOR IV START INTRADERMA ONE; +ROPIVACAINE 5MG/ML 20ML VIAL ONE; -SODIUM CHLORIDE 0.9% 1,000 ML IV SCH; -ceFAZolin 1,000 MG in SODIUM CHLORIDE 0.9% IRRIGATIO 250 ML IRRIGATION ONE; +fentaNYL (PF) 50 MCG/ML 2 ML AMP ONE; +methylPREDNISolone ACETATE 40 MG/ML 1 ML VIAL ONE
[2020-12-07 13:54] VITALS: TEMP 96.2
[2020-12-07 13:55] LABS: Glucose,Whole Blood 112 mg/dL (75-99)
--- NOTE | 2020-12-07 14:35 | P.PCN ---
Date of Procedure: 12/07/20 Procedure(s) Performed: PREOPERATIVE DIAGNOSIS: 1-Lumbar Spondylosis with Facet Arthropathy without myelopathy. 2- Lumber degenerative disc disease. POSTOPERATIVE DIAGNOSIS: 1- Lumbar Spondylosis with Facet Arthropathy without myelopathy. 2- Lumber degenerative disc disease. PROCEDURES : Right Radiofrequency thermocoagulation, L3 , L4 , and L5 medial branch, with fluoroscopic guidance (fluoroscopy images available in the radiology department) ( to denervate the facet joint at Right L4-5 ,and L5-S1 levels ). ANESTHESIA: Monitored anesthesia care as per anesthesia department . EBL: Minimal PROCEDURE INDICATION: The patient with low back pain secondary to lumbar facet arthropathy who had more than 50% relief of her pain with previous diagnostic lumbar medial branch block with bupivacaine. PROCEDURE DESCRIPTION / TECHNIQUE: The patient was seen and identified in the preoperative area. Risks, benefits, complications, including but not limited to risk of infection ,bleeding , allergic reactions to the medications and no complete pain releife , and alternatives were discussed with the patient, the patient agreed to proceed with the procedure and signed the consent. IV was started. Vital signs remained stable throughout the procedure. Patient was taken to the OR and time out was completed. The patient was placed in the prone position on the procedure table. The lumber area was prepped and draped in the usual sterile fashion. . Vital signs were closely monitored during the procedure .IV sedation was used during the procedure to decrease patients anxiety. Using AP and then oblique fluoroscopy, the ``eye of the Rafael dog correspon ding to the connection between the superior and transverse articular processes of right L3, L4, and L5 were identified, marked, and localized with 1% lidocaine. Subsequently, a [id number] radiofrequency cannula with a 10-mm active tip was advanced guided by fluoroscopy to each of the``eyes of the Rafael dog at right L3, L4, and L5. Each site then underwent sensory testing at 50 Hz and 0 to 1 volt and motor testing at 2.5 Hz and 0 to 3 volt with local stimulation, but no radicular symptoms down the legs. Thereafter each sites underwent radiofrequency thermocoagulation at 80 degrees celsius for 90 seconds after injecting 0.5 ml of PF Ropivacaine 1ml, then after the thermocoagulation done , 1 ml of the block solution containing Depo-Medrol 40 mg and 3 ml of Ropivacaine 0.5% was injected at the right L3 , L4 , and L5 , levels after negative aspiration of CSF and blood and with no paresthesias. Cannulas were retracted while injecting lidocaine 1% until the needle is out. At the end of the procedure, the skin was cleansed and bandages were applied. COMPLICATIONS: No acute complications. DISPOSITION / PLANS: The patient was placed in a supine position and transferre d to the recovery area in a stable condition for observation and was discharged from the recovery room after meeting discharge criteria. Home discharge instructions given to the patient by the staff. The patient was reexamined prior to discharge. The patient will schedule a follow up in the clinic in 2-4 weeks.
[2020-12-07 14:45] VITALS: RESP 17
[2020-12-07 14:57] VITALS: BP 155/87; PULSE 68
--- NOTE | 2020-12-07 15:49 | FL ---
Fluoroscopy HISTORY: Pain 5 seconds fluoroscopy time supplied to the referring clinician. 3 intraoperative C-arm images docume nt the procedure. See dictated report from anesthesia.
== END ==
LOC: ORPAIN 13:24
PROVIDERS: ATTEND Specialist
DX: M47.816 Spondylosis without myelopathy or radiculopathy, lumbar region (principal); M51.36 Other intervertebral disc degeneration, lumbar region; Z88.2 Allergy status to sulfonamides; Z88.8 Allergy status to other drugs, medicaments and biological substances; I10 Essential (primary) hypertension; E78.5 Hyperlipidemia, unspecified; G47.33 Obstructive sleep apnea (adult) (pediatric); J44.9 Chronic obstructive pulmonary disease, unspecified; N28.9 Disorder of kidney and ureter, unspecified; K21.9 Gastro-esophageal reflux disease without esophagitis; Z79.84 Long term (current) use of oral hypoglycemic drugs; Z79.899 Other long term (current) drug therapy
CPT/HCPCS: 64635; 64636; J1030; J3010; J2795

== ENCOUNTER → 2020-12-31 | Outpatient (CLI) | payer OTHER, MEDICARE ==
[2020-12-31 13:54] VITALS: BP 129/83; PULSE 81; RESP 18; TEMP 98.1
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
== END ==
LOC: PNWHC3 13:41
PROVIDERS: ATTEND Anesthesiology
DX: M47.816 Spondylosis without myelopathy or radiculopathy, lumbar region (principal); M47.814 Spondylosis without myelopathy or radiculopathy, thoracic region; M51.36 Other intervertebral disc degeneration, lumbar region; M48.061 Spinal stenosis, lumbar region without neurogenic claudication; E11.22 Type 2 diabetes mellitus with diabetic chronic kidney disease; N18.9 Chronic kidney disease, unspecified; Z95.0 Presence of cardiac pacemaker; Z71.82 Exercise counseling; Z98.1 Arthrodesis status; Z88.2 Allergy status to sulfonamides; Z88.8 Allergy status to other drugs, medicaments and biological substances; Z87.891 Personal history of nicotine dependence
CPT/HCPCS: 99211

== ENCOUNTER → 2021-01-21 | Outpatient (CLI) | payer OTHER, MEDICARE ==
[2021-01-21 13:53] VITALS: BP 150/79; PULSE 72; RESP 18; TEMP 98.3
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
== END | disposition home or self-care (01) ==
LOC: PNWHC3 13:35
PROVIDERS: ATTEND Anesthesiology
DX: M48.061 Spinal stenosis, lumbar region without neurogenic claudication (principal); M51.36 Other intervertebral disc degeneration, lumbar region; M47.894 Other spondylosis, thoracic region; E11.22 Type 2 diabetes mellitus with diabetic chronic kidney disease; N18.9 Chronic kidney disease, unspecified; M43.24 Fusion of spine, thoracic region; Z95.0 Presence of cardiac pacemaker
CPT/HCPCS: 99211

== ENCOUNTER → 2021-03-01 | Outpatient (CLI) | payer MEDICARE ==
[2021-03-02 05:58] LABS: African American GFR (CKD) 43.5 (60.0-200.0); Albumin 4.1 g/dL (3.80-4.90); Albumin/Globulin Ratio 1.52 (1.60-3.17); Anion Gap 9.4 mmol/L (4.00-12.00); BUN/Creat Ratio 16.47 Ratio (12.00-20.00); Calcium 9.2 mg/dL (8.7-10.3); Carbon Dioxide 25.6 mmol/L (21.6-31.8); Chol/HDL Ratio 2.26; Globulin 2.7 g/dL (1.6-3.3); LDL Cholesterol,Calculated 32.4 mg/dL (0.0-131.0); Non-African American GFR(CKD) 37.5 (60.0-200.0); Potassium 5.4 mmol/L (3.5-5.5); Total Bilirubin 0.6 mg/dL (0.2-1.2); Total Protein 6.8 g/dL (6.2-8.2); VLDL Calculation 21.6 mg/dL (5.00-40.00)
== END | disposition home or self-care (01) ==
LOC: LABWHC1 10:46
PROVIDERS: ATTEND Internal Medicine Interventional Cardiology
DX: E78.2 Mixed hyperlipidemia (principal)
CPT/HCPCS: 36415; 80053; 80061

== ENCOUNTER → 2021-03-25 | Outpatient (CLI) | payer OTHER, MEDICARE ==
[2021-03-25 13:21] VITALS: BP 156/80; PULSE 64; RESP 18
[2021-03-25 13:31] VITALS: TEMP 97.5
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
== END ==
LOC: PNWHC3 13:13
PROVIDERS: ATTEND Specialist
DX: M51.36 Other intervertebral disc degeneration, lumbar region (principal); M47.816 Spondylosis without myelopathy or radiculopathy, lumbar region; M79.18 Myalgia, other site; Z88.2 Allergy status to sulfonamides; Z88.8 Allergy status to other drugs, medicaments and biological substances; Z87.891 Personal history of nicotine dependence
CPT/HCPCS: 99211

== ENCOUNTER → 2021-03-27 | Outpatient (CLI) | payer MEDICARE ==
[2021-03-27 12:38] LABS: Appearance,Urine Clear (Clear); Bilirubin,Urine Negative (Negative); Blood,Urine Negative (Negative); Color,Urine Yellow; Glucose,Urine (UA) Negative (Negative); Ketones,Urine Negative (Negative); Leukocyte Esterase,Urine Negative (Negative); Nitrite,Urine Negative (Negative); Protein,Urine Trace (Negative); Specific Gravity,Urine 1.019 (1.001-1.035); Urobilinogen,Urine <2.0 mg/dL (<2.0)
[2021-03-27 12:50] LABS: Creatinine,Urine Random 147.1 mg/dL; Protein/Creatinine Ratio,Urine 0.136
[2021-03-27 19:02] LABS: HCT 49.7 % (39.6-50.0); HGB 15.8 g/dL (13.0-17.0); MCH 33.5 pg (27.0-32.0); MCHC 31.8 g/dL (32.0-37.0); MCV 105.3 fL (80.0-97.0); Mean Platelet Volume 10.8 fL (9.5-12.2); Platelet Count 151 X 10*3/uL (140-440); RBC 4.72 X 10*6/uL (4.40-5.60); RDW 14.3 % (11.5-14.5); WBC 7.68 X 10*3/uL (4.50-10.00)
[2021-03-27 20:08] LABS: Basophils # (A) 0.05 X 10*3/uL (0.00-0.10); Basophils % (A) 0.7 %; Eosinophils # (A) 0.21 X 10*3/uL (0.04-0.35); Eosinophils % (A) 2.7 %; Lymphocytes # (A) 2.35 X 10*3/uL (0.90-5.00); Lymphocytes % (A) 30.6 %; Monocytes # (A) 0.71 X 10*3/uL (0.20-1.00); Monocytes % (A) 9.2 %; Neutrophils # (A) 4.34 X 10*3/uL (1.80-7.70); Neutrophils % (A) 56.5 %
[2021-03-27 20:09] LABS: Macrocytosis (M) 2+
[2021-03-27 21:18] LABS: % Iron Saturation 30.46 (15.00-50.00); African American GFR (CKD) 47.2 (60.0-200.0); Anion Gap 14.4 mmol/L (4.00-12.00); BUN/Creat Ratio 15.72 Ratio (12.00-20.00); Calcium 9.3 mg/dL (8.7-10.3); Carbon Dioxide 24.3 mmol/L (21.6-31.8); Magnesium 2.1 mg/dL (1.5-2.4); Non-African American GFR(CKD) 40.7 (60.0-200.0); Phosphorus 4.2 mg/dL (2.4-5.1); Potassium 4.6 mmol/L (3.5-5.5)
== END | disposition home or self-care (01) ==
LOC: LABWHC1 09:57
PROVIDERS: ATTEND Nurse Practitioner Family
DX: E55.9 Vitamin D deficiency, unspecified (principal); D64.9 Anemia, unspecified; N39.0 Urinary tract infection, site not specified; N25.81 Secondary hyperparathyroidism of renal origin; R80.9 Proteinuria, unspecified
CPT/HCPCS: 36415; 80048; 81003; 82306; 82570; 82728; 83540; 83550; 83735; 83970; 84100; 84156; 85025

== ENCOUNTER → 2021-10-28 | Outpatient (CLI) | payer MEDICARE ==
--- NOTE | 2021-10-28 11:39 | P.PN ---
Subjective Progress Note Date: 10/28/21 Principal diagnosis: A 81 yr old male with at side with a history of severe and chronic low back pain secondary to lumbar degenerative disc diseases and lumbar spondylosis with facet arthropathy and right sacroiliitis presents today for evaluation. He states his lower back pain is 4 out of 10 in intensity, constant in the right aspect of his lower lumbar spine with occasional shooting pain down the left lower extremity of a sharp, stabbing character. Pain is provoked by bending, twisting and lifting. Pain is alleviated with medications, topicals, injections, ice, heat, repositioning, physical therapy integrated with massage in July 2021 for 6 months, history of acupuncture, use of a cane for ambulation and rest. Interventional pain procedures completed include R RFA L3-L5 Patient is currently on Lyrica and Zanaflex Patient denies any side effects of the medication(s), denies excessive drowsiness or sleepiness, denies suicidal ideation and reports that the current pain medication is helping to control the pain and improve activities of daily living. Patient denies any motor or sensory deficits. Patient denies any fever or night sweats, denies any change in the bowel movements or urination. Physical Examination: -Constitutional: Cooperative. Not in acute distress . -HEENT: Neck is supple. No lymphadenopathy. No thyromegaly. Normal thyroid size. Eyes: No ptosis , no icterus, no photophobia. ENT: No auditory deficits. Normal oropharynx. No Thrush. - Respiratory: Chest clear to auscultations bilaterally. No wheezing. No rhonchi. - Cardiovascular: Regular rate and rhythm. S1 / S2 , no S3 , no S4. - Gastrointestinal: Abdomen soft no tenderness. Bowel sounds positive in all four quadrants. No organomegaly. - Genitourinary: Deferred. - Neurologic: Cranial nerve II to XII intact. No focal neurological deficits. - Psychatric: Alert & oriented x 3. Matching mood & appropriate affect. Judgment and insight intact. - Lymphatic: No Lymphadenopathy. - Musculoskeletal: Cervical spine: Muscle bulk/ tone/ strength in the bilateral upper extremities normal. Facet loading test cervical area positive. Lumbar spine: Motor bulk/ tone/ strength lower extremities , thigh and legs : 5/5 Deep tendon reflexes : Normal Knee Jerk. Normal Ankle Jerk . Vertebral body tenderness to palpation over Lumbar Facet Loading Test positive Straight Leg Raise: positive at 30 degrees right side/ left side Gaenslen's Test positive Sacral spine : Severe tenderness over the Sacroiliac joint: right side / left side Range of motion: Flexion of the lumbar spine <60 degrees Range of motion: Extension of the lumbar spine <20 degrees Gaenslen's Test positive on the right Quynh test: positive right side / left side Assessment and plan: Chronic low back pain secondary to lumbar degenerative disc disease , lumbar spondylosis with facet arthropathy without myelopathy, right sacroiliitis Recommendation of right SI joint injection. May need a series of injections, every 3 months as needed, for optimal pain relief. Risks, benefits of procedure discussed and patient verbalized understanding. Denies anticoagulant use or medical history of diabetes. Chronic and current use of high-risk medication (Opioids). The patient was counseled about risk of opioid use, psychological risk associated with opioids and was orally counseled to not overuse , divert or sell medications. Pt is to store medication in a safe location. The patient is counseled against driving while using narcotic medications and also not to use alcohol or any illicit recreational drugs. Patient verbalized understanding that the lack of compliance will result in failure to renew narcotic prescription(s) as well as possible discharge from the clinic Diagnoses, prognosis and treatment options including but not limited to physical therapy, surgical interventions, interventional therapies and medication management including narcotics and adjuvant medication were discussed. All patient questions answered MAPS reviewed and it was appropriate. Prescription refill for Lyrica with 1 refill, Zanaflex with 1 refill. I have spent 31 minutes on patient care today. Dr Sanabria was available by phone for the evaluation of this patient. The time was used to review the medical records including relevant urine studies and Prescription history (MAPs), review of the available imaging, evaluation and examination of the patient, coordination of care with the medical staff and if applicable referring physicians, as well as creation of the medical record PQRS Measure Charge Sheet PQRS Narrative: Smoking Status Former smoker Hx Alcohol Use (MH) Yes Home Medications: Ambulatory Orders Aspirin EC [Ecotrin] 81 mg PO HS 12/31/15 Doxazosin [Cardura] 4 mg PO BID 12/31/15 Multivit-Min/FA/Lycopen/Lutein [Centrum Silver Tablet] 1 tab PO DAILY 12/31/15 Omeprazole [PriLOSEC] 40 mg PO DAILY 12/31/15 Torsemide [Demadex] 5 mg PO DAILY 12/31/15 hydrALAZINE HCL [Apresoline] 100 mg PO BID 12/31/15 lisinopriL [Zestril] 20 mg PO BID 12/31/15 Ezetimibe [Zetia] 10 mg PO MOTUWETHFR 01/28/19 Labetalol HCl [Trandate] 300 mg PO DAILY 01/28/19 Simvastatin [Zocor] 40 mg PO MOTUWETHFR 01/28/19 Ubidecarenone [Co Q-10] 100 mg PO DAILY 01/28/19 Vitamin B Complex 1 each PO DAILY 01/28/19 allopurinoL [Zyloprim] 100 mg PO DAILY 01/28/19 Cholecalciferol [Vitamin D3] 400 unit PO DAILY 04/18/20 Nitroglycerin Sl Tabs [Nitrostat] 0.4 mg SUBLINGUAL Q5M PRN 04/18/20 [place]-3 Fatty Acids/Fish Oil [Fish Oil 1,000 mg Softgel] 1 each PO DAILY 04/18/20 metFORMIN HCL ER [Glucophage Xr] 500 mg PO QAM 12/05/20 Lidocaine 5% Patch [Lidoderm] 1 patch TOPICAL DAILY 30 Days #30 patch 03/25/21 Pregabalin [Lyrica] 100 mg PO HS 90 Days #90 cap 03/25/21 tiZANidine HCL [Zanaflex] 6 mg PO Q24HR PRN #90 cap 03/25/21
[2021-10-28 11:42] VITALS: BP 110/70; PULSE 77; RESP 18; TEMP 97.6
== END ==
LOC: PNWHC3 11:09
PROVIDERS: ATTEND Specialist
DX: M47.816 Spondylosis without myelopathy or radiculopathy, lumbar region (principal); M51.36 Other intervertebral disc degeneration, lumbar region; M46.1 Sacroiliitis, not elsewhere classified; G89.29 Other chronic pain; Z79.891 Long term (current) use of opiate analgesic; Z87.891 Personal history of nicotine dependence; Z88.2 Allergy status to sulfonamides; Z88.8 Allergy status to other drugs, medicaments and biological substances
CPT/HCPCS: 99211

== ENCOUNTER 2021-12-10 12:43 | Day surgery (SDC) | payer MEDICARE ==
[~2021-12-10 12:43] MED LIST changes: -LACTATED RINGERS 1,000 ML IV SCH; -LIDOCAINE 1% (10MG/ML) FOR IV START INTRADERMA ONE; +LIDOCAINE 1% (10MG/ML) FOR IV START INTRADERMA PRN; -ROPIVACAINE 5MG/ML 20ML VIAL ONE; -fentaNYL (PF) 50 MCG/ML 2 ML AMP ONE; -methylPREDNISolone ACETATE 40 MG/ML 1 ML VIAL ONE
[2021-12-10 13:05] VITALS: TEMP 97.2
[2021-12-10 13:25] LABS: Glucose,Whole Blood 104 mg/dL (70-110)
[2021-12-10] MEDS: LACTATED RINGERS 1,000 ML IV SCH ×2 (13:32→13:44)
[2021-12-10] MEDS ORDERED: ROPIVACAINE 5MG/ML 20ML VIAL ONE (13:45)
[2021-12-10] MEDS ORDERED: MIDAZOLAM 2 MG/2 ML VIAL ONE (13:45)
[2021-12-10] MEDS ORDERED: methylPREDNISolone ACETATE 40 MG/ML 1 ML VIAL ONE (13:45)
--- NOTE | 2021-12-10 14:00 | P.PCN ---
Date of Procedure: 12/10/21 Procedure(s) Performed: Procedure= Right sacroiliac joints steroid injection under fluoroscopy guidance (fluoroscopy image stored on file in the radiology Department ) Preoperative diagnosis= 1- Right sacroiliitis 2-lumbar degenerative disc disease 3-lumbar facet arthropathy Postoperative diagnosis=Same as preop Diagnosis . Complication = none Condition= stable Anesthesia= moderate sedation with intravenous Versed 1 mg . Indication for the procedure= patient complaining of low back pain , examination was positive for severe tenderness over the Right sacroiliac joints, and patient diagnosed with sacroiliitis, for this reason he was good candidate for sacroiliac joint steroid injection. Description of the procedure= procedure risk and benefits discussed with the patient, including but not limited, risk of infection and bleeding, and ALLERGIC reaction to the medication and not complete pain relief and patient agreed with the preceding patient taken to the operating room, placed in prone position or standard monitors applied to the patient then after induction of anesthesia back prepped with chlorhexidine 3 times , Then under strict sterile technique, first I did the right sacroiliac joint the which was identified under fluoroscopy guidance been local infiltration of the skin and subcu interstitial with lidocaine 1% then 22-gauge Quincke Needle advanced slowly under fluoroscopy and placed in the right sacroiliac joint needle placement confirmed with AP and oblique and lateral view and after appropriate needle placement confirmed and after negative aspiration, or heme , then Ropivacaine 0.5% 4 mL, and 40 mg of Depo-Medrol mixed together and injected in the right sacroiliac joint after negative aspiration patient tolerated the procedure well without any complication.
[2021-12-10] MEDS ORDERED: IV FLUID CONTINUATION 1,000 ML IV ONE (14:04)
[2021-12-10 14:08] VITALS: RESP 16
[2021-12-10 14:24] VITALS: BP 146/82; PULSE 60
--- NOTE | 2021-12-11 04:59 | FL ---
EXAMINATION TYPE: FL guided pain mgmt statistic DATE OF EXAM: 12/10/2021 FLUOROSCOPY Fluoroscopy time of 6 seconds was used during right SI joint injection. 1 image/s document/s the pro cedure.
== END 2021-12-10 14:48 | disposition home or self-care (01) ==
LOC: ORPAIN 12:43
PROVIDERS: ATTEND Specialist
DX: M46.1 Sacroiliitis, not elsewhere classified (principal); M47.816 Spondylosis without myelopathy or radiculopathy, lumbar region; Z88.2 Allergy status to sulfonamides; Z88.8 Allergy status to other drugs, medicaments and biological substances
CPT/HCPCS: J2250; J1030; J2795; G0260; 27096; 99152

== ENCOUNTER → 2021-12-23 | Outpatient (CLI) | payer MEDICARE ==
--- NOTE | 2021-12-23 11:09 | P.PAINPG ---
PQRS Measure Charge Sheet Comment: A 81 yr old male with a history of severe and chronic low back pain secondary to lumbar degenerative disc diseases and lumbar spondylosis with facet arthropathy presents today for medication refills and evaluation s/p R SI joint injection. Pt states he received 0% pain relief s/p procedure. Pain level is cu rrently at 4/10 in intensity, constant, dull/ achy in character with radiation of shooting pain towards the BLEs. Pain is provoked by standing for periods of 5 min or more. Pain is alleviated with PT (to restart in 1 week), massage twice a week, occasional heat, occasional ice, sitting, laying supine and rest. Interventional pain procedures completed include R SI joint injection Patient is currently on Lyrica, Zanaflex Patient denies any side effects of the medication(s), denies excessive drowsiness or sleepiness, denies suicidal ideation and reports that the current pain medication is helping to control the pain and improve activities of daily living. Patient denies any motor or sensory deficits. Patient denies any fever or night sweats, denies any change in the bowel movements or urination. Physical Examination: -Constitutional: Cooperative. Not in acute distress . - Neurologic: Cranial nerve II to XII intact. No focal neurological deficits. - Psychatric: Alert & oriented x 3. Matching mood & appropriate affect. Judgment and insight intact. - Musculoskeletal: Cervical spine: Muscle bulk/ tone/ strength in the bilateral upper extremities normal Vertebral body tenderness to palpation over Spurling test positive Distraction test positive Facet loading test positive Thoracic spine Muscle bulk / tone/ strength in the bilateral paraspinal muscles normal Vertebral body tender to palpation over Facet loading test positive Lumbar spine: Motor bulk/ tone/ strength lower extremities , thigh and legs : 5/5 Deep tendon reflexes : Normal Knee Jerk. Normal Ankle Jerk . Vertebral body tenderness to palpation over L5 Lumbar Facet Loading Test positive Straight Leg Raise: positive at 30 degrees right side/ left side Gaenslen's Test positive Sacral spine : Severe tenderness over the Sacroiliac joint: right side / left side Range of motion: Flexion of the lumbar spine <60 degrees Range of motion: Extension of the lumbar spine <20 degrees Gaenslen's Test positive Benjie's Test positive Quynh test: positive right side / left side Thigh Thrust Test Sacral Thrust Test Assessment and plan: Chronic low back pain secondary to lumbar degenerative disc disease , lumbar spondylosis with facet arthropathy without myelopathy Pt did not exhibit sufficient pain relief with R SI joint injection. Will manage with medications for the time being. Chronic and current use of high-risk medication (Opioids). The patient was counseled about risk of opioid use, psychological risk associated with opioids and was orally counseled to not overuse , divert or sell medications. Pt is to store medication in a safe location. The patient is counseled against driving while using narcotic medications and also not to use alcohol or any illicit recreational drugs. Patient verbalized understanding that the lack of compliance will result in failure to renew narcotic prescription(s) as well as possible discharge from the clinic Diagnoses, prognosis and treatment options including but not limited to physical therapy, surgical interventions, interventional therapies and medication management including narcotics and adjuvant medication were discussed. All patient questions answered MAPS reviewed and it was appropriate. Prescription refill for Lyrica 100mg , Zanaflex 6mg w 1 refill. I have spent less than 30 minutes on patient care today. Dr Sanabria was available by phone for the evaluation of this patient. The time was used to review the medical records including relevant urine studies and Prescription history (MAPs), review of the available imaging, evaluation and examination of the patient, coordination of care with the medical staff and if applicable referring physicians, as well as creation of the medical record PQRS Narrative: Smoking Status Former smoker Hx Alcohol Use (MH) Yes Home Medications: Ambulatory Orders Aspirin EC [Ecotrin] 81 mg PO HS 12/31/15 Doxazosin [Cardura] 4 mg PO BID 12/31/15 Multivit-Min/FA/Lycopen/Lutein [Centrum Silver Tablet] 1 tab PO DAILY 12/31/15 Omeprazole [PriLOSEC] 40 mg PO DAILY 12/31/15 Torsemide [Demadex] 5 mg PO DAILY 12/31/15 hydrALAZINE HCL [Apresoline] 100 mg PO BID 12/31/15 lisinopriL [Zestril] 20 mg PO BID 12/31/15 Ezetimibe [Zetia] 10 mg PO MOTUWETHFR 01/28/19 Labetalol HCl [Trandate] 300 mg PO DAILY 01/28/19 Simvastatin [Zocor] 40 mg PO MOTUWETHFR 01/28/19 Ubidecarenone [Co Q-10] 100 mg PO DAILY 01/28/19 Vitamin B Complex 1 each PO DAILY 01/28/19 allopurinoL [Zyloprim] 100 mg PO DAILY 01/28/19 Cholecalciferol [Vitamin D3] 400 unit PO DAILY 04/18/20 Nitroglycerin Sl Tabs [Nitrostat] 0.4 mg SUBLINGUAL Q5M PRN 04/18/20 Lidocaine 5% Patch [Lidoderm] 1 patch TOPICAL DAILY 30 Days #30 patch 03/25/21 Pregabalin [Lyrica] 100 mg PO HS 90 Days #90 cap 10/28/21 tiZANidine HCL [Zanaflex] 6 mg PO HS PRN 12/06/21 Controlled Substance Measures - Controlled Substance Measures Is patient prescribed a controlled substance at discharge?: Yes When asked, does pt state using other controlled substances?: No If prescribed controlled substance>3 days was MAPS reviewed?: Yes If Rx opioid, was Start Talking consent form obtained?: Yes Was information provided regarding opioid addiction?: Yes
[2021-12-23 11:13] VITALS: BP 130/78; PULSE 73; RESP 16
== END ==
LOC: PNWHC3 10:40
PROVIDERS: ATTEND Specialist
DX: M47.816 Spondylosis without myelopathy or radiculopathy, lumbar region (principal); M51.36 Other intervertebral disc degeneration, lumbar region; G89.29 Other chronic pain; Z79.891 Long term (current) use of opiate analgesic; Z87.891 Personal history of nicotine dependence; Z88.2 Allergy status to sulfonamides; Z88.8 Allergy status to other drugs, medicaments and biological substances
CPT/HCPCS: 99211

== ENCOUNTER → 2022-02-19 | Outpatient (CLI) | payer MEDICARE ==
[2022-02-19 11:44] VITALS: BP 119/70; PULSE 67; RESP 18; TEMP 97.6
--- NOTE | 2022-02-19 12:21 | P.PN ---
Subjective Progress Note Date: 02/19/22 This is followed of visits for this 81 years old male with a chronic history of severe low back pain with radiation to the lower extremity, to see if that with numbness and tingling sensation, also patient had severe low back pain radiated to the right buttock area, patient diagnosed with lumbar degenerative disc disease and lumbar spondylosis with lumbar facet arthropathy, and right sacroiliitis, she had compression fractures of the thoracic spine and he has thoracic fusion from T7 to T10, recently we have done the right side sacroiliac joint steroid injection patient reported that he had 0 benefit from it, previously patient had multiple pain in the interventions procedure patient reported that he had no benefit from it, THE patient is on Lyrica 50 mg daily at bedtime , and Zanaflex 6 mg daily at bedtime, he denies any side effects of the medication he denies any excessive drowsiness or sleepiness but he reported that he had no benefit from it, he continued to have severe pain and numbness in the lower extremity and he continued to have severe muscle spasm in the lumbar paraspinal muscles is more prominent on the right side Physical Exam Physical Examinations : -Constitutiona : Cooperative , not in acute distress . -HEENT : nech : supple , no Lymphadenopathy , normal thyroid size . : eyes : no ptosis , no icterus, no photophobia . - neurologic : Cranial nerve II to XII intact , no focal neurological deffecit . -psychatric : alert , oriented X 3 , appropriate affect , intact judgment and insight . -Lymphatic : no Lymphadenopathy . - musculoskeltal : Lumber spine moter stegnth lower extremities ,thigh and legs 5/5 Right side , 5/5 Left side deep tendon reflexes : normal Knee Jerk , normal ankle Jerk lumber facet Loading Test =positive Right , positive Left Range of motion of the lumbar spine Flexion 30 degrees, extension 10 degrees strait leg raising test = positive at 45 degree Fabere test= positive Right , and positive LT . Sever tenderness over the Sacroiliac joint on the Right , and Left sides Gaenslen test= positive right ,and positive left . Seated flexion test= positive right. Distraction test= positive right X ray lumbar spine lumbar degenerative disc disease and lumbar spondylosis. Assessment and plan= 1-right sacroiliitis. 2-lumbar radiculopathy. 3-lumbar degenerative disc disease. 4-lumbar spondylosis with lumbar facet arthropathy. 5-history of thoracic fusion. She had right sacroiliac joint steroid injection without any benefit, stress with the patient the option of doing lumbar epidural steroid injection at L4 5 or L5-S1 patient reported that he is not interested in interventional pain management, and he reported that the current medication is not helping enough, for this reason I will change his Lyrica dose from 50 mg daily at bedtime to one E5 milligrams every morning 25 mg every afternoon and 50 mg daily at bedtime. So I will change his muscle relaxant Zanaflex from 6 mg daily at bedtime to 4 mg twice a day, and we'll evaluate the patient's response to the treatment for the next few weeks, future we can increase the dose of Lyrica and increase the dose of muscle relaxant to 3 times a day Objective - Vital Signs Vital signs: Vital Signs Temp 97.6 F 02/19/22 11:30 Pulse 67 02/19/22 11:30 Resp 18 02/19/22 11:30 BP 119/70 02/19/22 11:30 Pulse Ox 96 02/19/22 11:30 FiO2 Intake & Output 02/18/22 02/19/22 02/19/22 18:59 06:59 18:59 Weight 104.326 kg
== END ==
LOC: PNWHC3 11:09
PROVIDERS: ATTEND Specialist
DX: M47.26 Other spondylosis with radiculopathy, lumbar region (principal); M51.16 Intervertebral disc disorders with radiculopathy, lumbar region; M46.1 Sacroiliitis, not elsewhere classified; Z88.2 Allergy status to sulfonamides; Z88.8 Allergy status to other drugs, medicaments and biological substances; Z87.891 Personal history of nicotine dependence
CPT/HCPCS: 99211

== ENCOUNTER → 2022-03-12 | Outpatient (CLI) | payer MEDICARE ==
[2022-03-12 18:09] LABS: ALT 21 U/L (10-49); AST 31 U/L (14-35); African American GFR (CKD) 47.2 (60.0-200.0); Albumin 3.9 g/dL (3.8-4.9); Albumin/Globulin Ratio 1.35 (1.60-3.17); Alkaline Phosphatase 72 U/L (41-126); BUN/Creat Ratio 14.81 Ratio (12.00-20.00); Blood Urea Nitrogen 23.4 mg/dL (9.0-27.0); Calcium 9.3 mg/dL (8.7-10.3); Carbon Dioxide 25.3 mmol/L (20.0-27.5); Chloride 103 mmol/L (96-109); Chol/HDL Ratio 2.44 Ratio; Globulin 2.9 g/dL (1.6-3.3); Glucose 142 mg/dL (70-110); LDL Cholesterol,Calculated 34.2 mg/dL (0.0-131.0); Non-African American GFR(CKD) 40.7 (60.0-200.0); Potassium 4.6 mmol/L (3.5-5.5); Sodium 140 mmol/L (135-145); Total Protein 6.7 g/dL (6.2-8.2)
== END | disposition home or self-care (01) ==
LOC: LABWHC1 11:05
PROVIDERS: ATTEND Nurse Practitioner Family
DX: E78.2 Mixed hyperlipidemia (principal); E55.9 Vitamin D deficiency, unspecified; N18.32 Chronic kidney disease, stage 3b
CPT/HCPCS: 36415; 80053; 80061; 83970

== ENCOUNTER → 2022-11-03 | Outpatient (CLI) | payer MEDICARE ==
[2022-11-03 15:44] LABS: Chol/HDL Ratio 2.42 Ratio; LDL Cholesterol,Calculated 43.2 mg/dL (0.0-131.0)
[2022-11-03 16:12] LABS: ALT 26 U/L (10-49); AST 34 U/L (14-35)
[2022-11-03 17:13] LABS: % Iron Saturation 16.07 (15.00-50.00); African American GFR (CKD) 43.8 (60.0-200.0); Blood Urea Nitrogen 20.2 mg/dL (9.0-27.0); Calcium 9.2 mg/dL (8.7-10.3); Carbon Dioxide 21.2 mmol/L (20.0-27.5); Chloride 103 mmol/L (96-109); Glucose 154 mg/dL (70-110); Iron 50 ug/dL (65-175); Magnesium 1.8 mg/dL (1.5-2.4); Non-African American GFR(CKD) 37.8 (60.0-200.0); Phosphorus 3.4 mg/dL (2.4-5.1); Potassium 4.7 mmol/L (3.5-5.5); Sodium 139 mmol/L (135-145); Total Iron Binding Capacity 308 ug/dL (228-460)
[2022-11-03 18:48] LABS: Basophils # (A) 0.05 X 10*3/uL (0.00-0.10); Basophils % (A) 0.7 %; Eosinophils # (A) 0.22 X 10*3/uL (0.04-0.35); Eosinophils % (A) 2.9 %; HCT 42.7 % (39.6-50.0); HGB 13.7 g/dL (13.0-17.0); Immature Grans, Automated 0.9 %; Lymphocytes # (A) 1.53 X 10*3/uL (0.90-5.00); Lymphocytes % (A) 20.1 %; MCH 33.6 pg (27.0-32.0); MCHC 32.1 g/dL (32.0-37.0); MCV 104.7 fL (80.0-97.0); Mean Platelet Volume 11.4 fL (9.5-12.2); Monocytes # (A) 0.94 X 10*3/uL (0.20-1.00); Monocytes % (A) 12.4 %; NRBC Per 100 WBC 0.3 /100 WBCS (0.0-0.0); Neutrophils # (A) 4.79 X 10*3/uL (1.80-7.70); Platelet Count 178 X 10*3/uL (140-440); RBC 4.08 X 10*6/uL (4.40-5.60); RDW 14.6 % (11.5-14.5)
== END | disposition home or self-care (01) ==
LOC: LABWHC1 11:25
PROVIDERS: ATTEND Nurse Practitioner Family
DX: N25.81 Secondary hyperparathyroidism of renal origin (principal); N18.32 Chronic kidney disease, stage 3b; D63.1 Anemia in chronic kidney disease; E78.2 Mixed hyperlipidemia
CPT/HCPCS: 36415; 80048; 80061; 82043; 82570; 82728; 83540; 83550; 83735; 83970; 84100; 84450; 84460; 85025

== ENCOUNTER 2022-11-04 14:30 | Observation (INO) | payer MEDICARE ==
[2022-11-04] MEDS ORDERED: IPRATROPIUM-ALBUTEROL 3 ML NEB INHALATION STA ×2 (15:22→15:26)
--- NOTE | 2022-11-04 15:26 | ED ---
General Adult HPI - General Chief complaint: Shortness of Breath Stated complaint: Recheck Time Seen by Provider: 11/04/22 14:38 Source: patient, RN notes reviewed Mode of arrival: ambulatory Limitations: no limitations - History of Present Illness Initial comments: Patient is a pleasant 82-year-old male presenting to the emergency department with difficulty breathing. Symptoms have progressively the past couple of weeks. Dyspnea especially worsens with exertion. No leg pain or leg swelling. Patient does have history of similar symptoms previously associated with COPD. No fever. Mild cough. Oxygen was low at the doctor's office prior to arrival and patient was advised come to emergency department - Related Data Home Medications Medication Instructions Recorded Confirmed Aspirin EC [Ecotrin] 81 mg PO HS 12/31/15 11/04/22 Doxazosin [Cardura] 4 mg PO BID 12/31/15 11/04/22 Multivit-Min/FA/Lycopen/Lutein 1 tab PO DAILY 12/31/15 11/04/22 [Centrum Silver Tablet] Omeprazole [PriLOSEC] 40 mg PO DAILY 12/31/15 11/04/22 Torsemide [Demadex] 5 mg PO DAILY 12/31/15 11/04/22 hydrALAZINE HCL [Apresoline] 100 mg PO TID PRN 12/31/15 11/04/22 Ezetimibe [Zetia] 10 mg PO MOTUWETHFR 01/28/19 11/04/22 Labetalol HCl [Trandate] 600 mg PO BID 01/28/19 11/04/22 Simvastatin [Zocor] 40 mg PO MOTUWETHFR 01/28/19 11/04/22 Ubidecarenone [Co Q-10] 100 mg PO MOTUWETHFR 01/28/19 11/04/22 Vitamin B Complex 1 cap PO DAILY 01/28/19 11/04/22 allopurinoL [Zyloprim] 100 mg PO BID 01/28/19 11/04/22 Cholecalciferol [Vitamin D3] 400 unit PO DAILY 04/18/20 11/04/22 Nitroglycerin Sl Tabs [Nitrostat] 0.4 mg SUBLINGUAL Q5M PRN 04/18/20 11/04/22 Albuterol Nebulized [Ventolin 2.5 mg INHALATION RT-BID PRN 11/04/22 11/04/22 Nebulized] Budesonide [Pulmicort] 0.5 mg INHALATION RT-BID PRN 11/04/22 11/04/22 Cyanocobalamin [Vitamin B-12] 500 mcg PO DAILY 11/04/22 11/04/22 Pregabalin [Lyrica] 100 mg PO HS 11/04/22 11/04/22 lisinopriL [Zestril] 2.5 mg PO HS 11/04/22 11/04/22 tiZANidine HCL [Zanaflex] 4 mg PO HS 11/04/22 11/04/22 Allergies Allergy/AdvReac Type Severity Reaction Status Date / Time lorazepam [From Ativan] Allergy MAKES HIM Verified 11/04/22 17:29 HYPER Sulfa (Sulfonamide Allergy Rash/Hives Verified 11/04/22 17:29 Antibiotics) Review of Systems ROS Statement: Those systems with pertinent positive or pertinent negative responses have been documented in the HPI. ROS Other: All systems not noted in ROS Statement are negative. Constitutional: Denies: fever Eyes: Denies: eye pain Respiratory: Reports: as per HPI, cough, dyspnea Cardiovascular: Denies: chest pain Endocrine: Denies: fatigue Gastrointestinal: Denies: abdominal pain Genitourinary: Denies: dysuria Musculoskeletal: Denies: back pain Past Medical History Past Medical History: Hyperlipidemia, Hypertension Additional Past Medical History / Comment(s): pancreatitis, back spasms with activity History of Any Multi-Drug Resistant Organisms: None Reported Past Surgical History: Cholecystectomy Additional Past Surgical History / Comment(s): pacemaker Past Anesthesia/Blood Transfusion Reactions: No Reported Reaction Additional Past Anesthesia/Blood Transfusion Reaction / Comment(s): difficult intubation-needs pediatric tube due to narrow opening Date of Last Stent Placement:: unknown Type of Cardiac Device: Permanent Pacemaker Device Placement Date:: 2019 replacement Past Psychological History: No Psychological Hx Reported Smoking Status: Former smoker, Unknown if ever smoked Past Alcohol Use History: Daily Past Drug Use History: None Reported - Past Family History Mother Family Medical History: No Reported History General Exam Limitations: no limitations General appearance: alert, in no apparent distress Head exam: Present: atraumatic Eye exam: Present: normal appearance Neck exam: Present: normal inspection Respiratory exam: Present: decreased breath sounds Cardiovascular Exam: Present: regular rate, normal rhythm GI/Abdominal exam: Present: soft. Absent: tenderness Extremities exam: Present: normal inspection. Absent: pedal edema, calf tenderness Neurological exam: Present: alert Psychiatric exam: Present: normal affect, normal mood Skin exam: Present: normal color Course Vital Signs 11/04/22 11/04/22 11/04/22 14:33 16:26 16:34 Temperature 98 F Pulse Rate 71 66 66 Respiratory 26 H Rate Blood Pressure 127/71 O2 Sat by Pulse 91 L Oximetry 11/04/22 16:41 Temperature Pulse Rate 68 Respiratory Rate Blood Pressure O2 Sat by Pulse Oximetry EKG Findings - EKG Results: EKG: interpreted by ERMD (Paced rhythm with a rate of 76. Right axis. Wide- complex QRS with nonspecific ST-T) Medical Decision Making - Medical Decision Making Was pt. sent in by a medical professional or institution (Dr. PA, COMMUNITY LEADER, urgent care, hospital, or group home...) When possible be specific @ -No Did you speak to anyone other than the patient for history (EMS, parent, family, police, friend...)? What history was obtained from this source @ - is present and helps provide history including past medical history Did you review nursing and triage notes (agree or disagree)? Why? @ -I reviewed and agree with nursing and triage notes Were old charts reviewed (outside hosp., previous admission, EMS record, old EKG, old radiological studies, urgent care reports/EKG's, group home records)? Report findings @ -No old charts were reviewed Differential Diagnosis (chest pain, altered mental status, abdominal pain women, abdominal pain men, vaginal bleeding, weakness, fever, dyspnea, syncope, headache, dizziness, GI bleed, back pain, seizure, CVA, palpatations, mental health)? @ -Differential Dyspnea: Coronary syndrome, arrhythmia, tamponade, asthma, COPD, pulmonary embolism, pneumonia, pneumothorax, pulmonary effusion, anaphylaxis, diabetic ketoacidosis, flailed chest, pulmonary contusion, diaphragmatic rupture, anemia, neuromuscular, this is not meant to be an all-inclusive list. EKG interpreted by me (3pts min.). @ -As above X-rays interpreted by me (1pt min.). @ -Chest x-ray shows questionable cephalization/fluid overload CT interpreted by me (1pt min.). @ -None done U/S interpreted by me (1pt. min.). @ -None done What testing was considered but not performed or refused? (CT, X-rays, U/S, labs)? Why? @ -None What meds were considered but not given or refused? Why? @ -None Did you discuss the management of the patient with other professionals (professionals i.e. , PA, COMMUNITY LEADER, lab, RT, psych nurse, social director, bobbin cleaner, teacher, program officer, wrapper caser)? Give summary @ -Case was discussed with Dr. Maravilla as well as Dr. Cisse. Patient will be admitted with pulmonary consult Was smoking cessation discussed for >3mins.? @ -No Was critical care preformed (if so, how long)? @ -No Were there social determinants of health that impacted care today? How? (Homelessness, low income, unemployed, alcoholism, drug addiction, transportation, low edu. Level, literacy, decrease access to med. care, intermediate, rehab)? @ -No Was there de-escalation of care discussed even if they declined (Discuss DNR or withdrawal of care, Hospice)? DNR status @ -No What co-morbidities impacted this encounter? (DM, HTN, Smoking, COPD, CAD, Cancer, CVA, ARF, Chemo, Hep., AIDS, mental health diagnosis, sleep apnea, morbid obesity)? @ -None Was patient admitted / discharged? Hospital course, mention meds given and route, prescriptions, significant lab abnormalities, going to OR and other pertinent info. @ -Patient reevaluated. Patient will be admitted with pulmonary consult and VQ scan will be ordered. Patient and family are updated. Undiagnosed new problem with uncertain prognosis? @ -No Drug Therapy requiring intensive monitoring for toxicity (Heparin, Nitro, In sulin, Cardizem)? @ -No Were any procedures done? @ -No Diagnosis/symptom? @ -COPD Acute, or Chronic, or Acute on Chronic? @ -Acute Uncomplicated (without systemic symptoms) or Complicated (systemic symptoms)? @ -default Side effects of treatment? @ -No Exacerbation, Progression, or Severe Exacerbation? @ -No Poses a threat to life or bodily function? How? (Chest pain, USA, GA, pneumonia, PE, COPD, DKA, ARF, appy, cholecystitis, CVA, Diverticulitis, Homicidal, Suicidal, threat to staff... and all critical care pts) @ -No - Lab Data Result diagrams: 11/04/22 15:56 11/04/22 15:56 Lab Results 11/04/22 11/04/22 11/04/22 Range/Units 15:56 15:56 15:56 WBC 6.7 (3.8-10.6) k/uL RBC 3.95 L (4.30-5.90) m/uL Hgb 13.2 (13.0-17.5) gm/dL Hct 39.6 (39.0-53.0) % MCV 100.4 H (80.0-100.0) fL MCH 33.4 (25.0-35.0) pg MCHC 33.3 (31.0-37.0) g/dL RDW 14.8 (11.5-15.5) % Plt Count 172 (150-450) k/uL MPV 8.4 Neutrophils % 63 % Lymphocytes % 21 % Monocytes % 9 % Eosinophils % 3 % Basophils % 0 % Neutrophils # 4.2 (1.3-7.7) k/uL Lymphocytes # 1.4 (1.0-4.8) k/uL Monocytes # 0.6 (0-1.0) k/uL Eosinophils # 0.2 (0-0.7) k/uL Basophils # 0.0 (0-0.2) k/uL Macrocytosis Slight PT 10.6 (9.0-12.0) sec INR 1.0 (<1.2) APTT 25.2 (22.0-30.0) sec D-Dimer 1.18 H (<0.60) mg/L FEU Sodium 139 (137-145) mmol/L Potassium 4.1 (3.5-5.1) mmol/L Chloride 104 (98-107) mmol/L Carbon Dioxide 27 (22-30) mmol/L Anion Gap 8 mmol/L BUN 21 H (9-20) mg/dL Creatinine 1.65 H (0.66-1.25) mg/dL Est GFR (CKD-EPI)AfAm 44 (>60 ml/min/1.73 sqM) Est GFR (CKD-EPI)NonAf 38 (>60 ml/min/1.73 sqM) Glucose 115 H (74-99) mg/dL Plasma Lactic Acid Ronald (0.7-2.0) mmol/L Calcium 8.4 (8.4-10.2) mg/dL Total Bilirubin 0.6 (0.2-1.3) mg/dL AST 32 (17-59) U/L ALT 27 (4-49) U/L Alkaline Phosphatase 96 (38-126) U/L Troponin I (0.000-0.034) ng/mL NT-Pro-B Natriuret Pep pg/mL Total Protein 6.1 L (6.3-8.2) g/dL Albumin 3.4 L (3.5-5.0) g/dL 11/04/22 11/04/22 11/04/22 Range/Units 15:56 15:56 15:56 WBC (3.8-10.6) k/uL RBC (4.30-5.90) m/uL Hgb (13.0-17.5) gm/dL Hct (39.0-53.0) % MCV (80.0-100.0) fL MCH (25.0-35.0) pg MCHC (31.0-37.0) g/dL RDW (11.5-15.5) % Plt Count (150-450) k/uL MPV Neutrophils % % Lymphocytes % % Monocytes % % Eosinophils % % Basophils % % Neutrophils # (1.3-7.7) k/uL Lymphocytes # (1.0-4.8) k/uL Monocytes # (0-1.0) k/uL Eosinophils # (0-0.7) k/uL Basophils # (0-0.2) k/uL Macrocytosis PT (9.0-12.0) sec INR (<1.2) APTT (22.0-30.0) sec D-Dimer (<0.60) mg/L FEU Sodium (137-145) mmol/L Potassium (3.5-5.1) mmol/L Chloride (98-107) mmol/L Carbon Dioxide (22-30) mmol/L Anion Gap mmol/L BUN (9-20) mg/dL Creatinine (0.66-1.25) mg/dL Est GFR (CKD-EPI)AfAm (>60 ml/min/1.73 sqM) Est GFR (CKD-EPI)NonAf (>60 ml/min/1.73 sqM) Glucose (74-99) mg/dL Plasma Lactic Acid Ronald 1.4 (0.7-2.0) mmol/L Calcium (8.4-10.2) mg/dL Total Bilirubin (0.2-1.3) mg/dL AST (17-59) U/L ALT (4-49) U/L Alkaline Phosphatase (38-126) U/L Troponin I <0.012 (0.000-0.034) ng/mL NT-Pro-B Natriuret Pep 529 pg/mL Total Protein (6.3-8.2) g/dL Albumin (3.5-5.0) g/dL Disposition Clinical Impression: Acute exacerbation of chronic obstructive pulmonary disease Disposition: ADMITTED IP TO THIS HOSP Is patient prescribed a controlled substance at d/c from ED?: No Referrals: Farrukh Evans Jr, [Primary Care Provider] - 1-2 days Time of Disposition: 18:09
--- NOTE | 2022-11-04 15:53 | XR ---
EXAMINATION TYPE: XR chest 2V DATE OF EXAM: 11/04/2022 3:43 PM COMPARISON: Chest radiographs from 12/27/2016 TECHNIQUE: XR chest 2V Frontal and lateral views of the chest. CLINICAL INDICATION:Male, 82 years old with history of difficulty breathing; FINDINGS: Lungs/Pleura: No evidence of focal consolidation or pneumothorax. Blunting of the costophrenic angles is present. Pulmonary vascularity: Pulmonary vascular congestion. Heart/mediastinum: Cardiomediastinal silhouette is prominent in size. Two lead cardiac conduction dev ice overlying the left hemithorax with lead tips projecting over the right ventricle and right atrium . Musculoskeletal: No acute osseous pathology. Fixation hardware in the spine is new from prior. Fixati on hardware appears intact. IMPRESSION: Mild Cardiomegaly, pulmonary vascular congestion and bilateral pleural effusions. Correlate with BNP for congestive heart failure.
[2022-11-04 16:21] LABS: Albumin 3.4 g/dL (3.5-5.0); Calcium 8.4 mg/dL (8.4-10.2); Potassium 4.1 mmol/L (3.5-5.1); Total Bilirubin 0.6 mg/dL (0.2-1.3); Total Protein 6.1 g/dL (6.3-8.2)
[2022-11-04 16:28] LABS: Basophils % (A) 0 %; Eosinophils # (A) 0.2 k/uL (0-0.7); Eosinophils % (A) 3 %; HCT 39.6 % (39.0-53.0); HGB 13.2 gm/dL (13.0-17.5); Lymphocytes # (A) 1.4 k/uL (1.0-4.8); Lymphocytes % (A) 21 %; MCH 33.4 pg (25.0-35.0); MCHC 33.3 g/dL (31.0-37.0); MCV 100.4 fL (80.0-100.0); Macrocytosis Slight; Mean Platelet Volume 8.4; Monocytes # (A) 0.6 k/uL (0-1.0); Monocytes % (A) 9 %; Neutrophils # (A) 4.2 k/uL (1.3-7.7); Neutrophils % (A) 63 %; Partial Thromboplastin Time 25.2 sec (22.0-30.0); Platelet Count 172 k/uL (150-450); Prothrombin Time 10.6 sec (9.0-12.0); RBC 3.95 m/uL (4.30-5.90); RDW 14.8 % (11.5-15.5); WBC 6.7 k/uL (3.8-10.6)
[2022-11-04] MEDS ORDERED: methylPREDNISolone SOD SUCCI 125 MG/2 ML VIAL IV STA (18:09)
[2022-11-04] MEDS ORDERED: NALOXONE 0.4 MG/ML 1 ML VIAL IVP PRN (18:09)
[2022-11-04] MEDS ORDERED: IPRATROPIUM-ALBUTEROL 3 ML NEB INHALATION PRN (18:09)
[2022-11-04 20:01] LABS: VBG PH 7.34 (7.31-7.41)
[2022-11-04] MEDS: IPRATROPIUM-ALBUTEROL 3 ML NEB INHALATION SCH (21:57)
[2022-11-04] MEDS ORDERED: NITROGLYCERIN SL TABS 0.4 MG TAB SUBLINGUAL PRN (22:03)
[2022-11-04] MEDS ORDERED: hydrALAZINE HCL 50 MG TAB PO PRN (22:03)
[2022-11-04] MEDS ORDERED: NON FORMULARY DRUG (Ubidecarenone [Co Q-10] 100 MG Capsule) PO SCH (22:15)
--- NOTE | 2022-11-04 23:03 | NM ---
EXAM: NM Lung Perfusion Scan CLINICAL HISTORY: Dyspnea TECHNIQUE: Nuclear Medicine perfusion images of the lungs were obtained in multiple projections following injection of Tc99m MAA. COMPARISON: Plain radiographs performed at 1531 hrs. FINDINGS: Perfusion: No focal perfusion defects noted. IMPRESSION: Limited, perfusion only examination demonstrates no perfusion defects, consistent with very low probability for pulmonary embolism.
[2022-11-04] MEDS: DOXAZOSIN 4 MG TAB PO SCH (23:08)
[2022-11-04] MEDS: LABETALOL 200 MG TAB PO SCH (23:08)
[2022-11-04] MEDS: TORSEMIDE 20 MG TAB PO SCH (23:08)
[2022-11-05] MEDS: CYANOCOBALAMIN 500 MCG TAB PO SCH (05:38)
[2022-11-05] MEDS: EZETIMIBE 10 MG TAB PO SCH (07:48)
[2022-11-05] MEDS: PANTOPRAZOLE 40 MG TABLET PO SCH (07:48)
[2022-11-05] MEDS: ATORVASTATIN 20 MG TAB PO SCH (07:48)
[2022-11-05] MEDS: allopurinoL 100 MG TAB PO SCH ×2 (07:48→20:20)
[2022-11-05] MEDS: LABETALOL 200 MG TAB PO SCH ×2 (07:49→20:20)
[2022-11-05] MEDS: VIT A,C & E-LUTEIN-MINERALS 1 EACH TAB PO SCH (07:49)
[2022-11-05] MEDS: DOXAZOSIN 4 MG TAB PO SCH ×2 (07:49→20:20)
[2022-11-05] MEDS: FOLIC ACID-VIT B COMPLEX-VIT C 1 CAP PO SCH (07:49)
[2022-11-05] MEDS: CHOLECALCIFEROL 10 MCG (400 IU) TABLET PO SCH (07:50)
[2022-11-05] MEDS: TORSEMIDE 20 MG TAB PO SCH (07:50)
[2022-11-05 08:56] LABS: Basophils # (A) 0 X 10*3/uL (0.00-0.10); Basophils % (A) 0 %; Eosinophils # (A) 0 X 10*3/uL (0.04-0.35); Eosinophils % (A) 0 %; HCT 41.3 % (39.6-50.0); HGB 13.5 g/dL (13.0-17.0); Immature Grans, Automated 0.5 %; Lymphocytes # (A) 0.83 X 10*3/uL (0.90-5.00); MCH 33.1 pg (27.0-32.0); MCHC 32.7 g/dL (32.0-37.0); MCV 101.2 fL (80.0-97.0); Mean Platelet Volume 11.1 fL (9.5-12.2); Monocytes # (A) 0.08 X 10*3/uL (0.20-1.00); Monocytes % (A) 1.8 %; NRBC Per 100 WBC 0 /100 WBCS (0.0-0.0); Neutrophils # (A) 3.43 X 10*3/uL (1.80-7.70); Neutrophils % (A) 78.7 %; Platelet Count 209 X 10*3/uL (140-440); RBC 4.08 X 10*6/uL (4.40-5.60); RDW 14.4 % (11.5-14.5); WBC 4.36 X 10*3/uL (4.50-10.00)
[2022-11-05 09:03] LABS: African American GFR (CKD) 42.9 (60.0-200.0); Albumin 3.7 g/dL (3.8-4.9); Albumin/Globulin Ratio 1.37 (1.60-3.17); Anion Gap 14.7 mmol/L (10.00-18.00); BUN/Creat Ratio 14.35 Ratio (12.00-20.00); Blood Urea Nitrogen 24.4 mg/dL (9.0-27.0); Calcium 9.1 mg/dL (8.7-10.3); Carbon Dioxide 19.3 mmol/L (20.0-27.5); Globulin 2.7 g/dL (1.6-3.3); Potassium 4.8 mmol/L (3.5-5.5); Total Bilirubin 0.5 mg/dL (0.30-1.20); Total Protein 6.4 g/dL (6.2-8.2)
[2022-11-05] MEDS: BUDESONIDE 0.5 MG/2 ML NEBU INHALATION PRN ×2 (09:32→19:50)
[2022-11-05] MEDS: IPRATROPIUM-ALBUTEROL 3 ML NEB INHALATION SCH ×4 (09:32→19:50)
--- NOTE | 2022-11-05 11:39 | P.CNPUL ---
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 He also has obstructive sleep apnea maintained on CPAP. He is a former smoker, hypertension, hyperlipidemia, obesity, sick sinus syndrome status post permanent pacemaker implantation, systolic congestive heart failure with an ejection fraction 40-45%. Yesterday he was at his primary care provider's office and was found to have low oxygen and referred to the emergency room. He had been having issues with shortness of breath which have been readily worsening since April 2022. He has been unable to see his regular endoscopy nurse and difficulty getting an appointment. He was actually scheduled to see Dr. Mcnally in our office tomorrow as a new patient. Chest x-ray reveals mild cardiomegaly, pulmonary vascular congestion and bilateral pleural effusions. Some evidence of fluid volume overload. EKG reveals a paced rhythm. VQ scan was limited with no perfusion defects consistent with very low probability for pulmonary embolism. White count 4.3. Hemoglobin 13.5. Platelets 209. Sodium 137. Potassium 4.8. Bicarb 19. BUN 24. Creatinine 1.7. Glucose 277. Troponin negative times one. ProBNP 529. AST is 27. ALT 27. He is seen today in consultation on the regular medical floor. He is currently sitting up at the bedside. Awake and alert in no acute distress. Breathing a bit easier today compared to yesterday. Maintaining good O2 saturations in the 90s on 4 L/m per nasal cannula. He is afebrile. Hemodynamically stable. He's been initiated and DuoNeb inhalations, Pulmicort inhalations. He is on oral diuretics. Review of Systems REVIEW OF SYSTEMS: CONSTITUTIONAL: Denies any recent significant weight loss or weight gain. EYES: Denies change in vision. EARS, NOSE, MOUTH, THROAT: Denies headaches, denies sore throat. CARDIOVASCULAR: Denies chest pain, palpitations or syncopal episodes. RESPIRATORY: Positive for shortness of breath, cough, congestion no hemoptysis. GASTROINTESTINAL: Denies change in appetite, denies abdominal pain GENITOURINARY: Denies hematuria, denies infections. MUSKULOSKELETAL: Denies pain, denies swelling. INTEGUMENTARY: Denies rash, denies eczema. NEUROLOGICAL: Denies recent memory loss, no recent seizure activity. PSYCHIATRIC: Denies anxiety, denies depression. HEMATOLOGIC/LYMPHATIC: Denies anemia, denies enlarged lymph nodes. Past Medical History Past Medical History: Hyperlipidemia, Hypertension Additional Past Medical History / Comment(s): pancreatitis, back spasms with activity History of Any Multi-Drug Resistant Organisms: None Reported Past Surgical History: Cholecystectomy Additional Past Surgical History / Comment(s): pacemaker Past Anesthesia/Blood Transfusion Reactions: No Reported Reaction Additional Past Anesthesia/Blood Transfusion Reaction / Comment(s): difficult intubation-needs pediatric tube due to narrow opening Date of Last Stent Placement:: unknown Type of Cardiac Device: Permanent Pacemaker Device Placement Date:: 2018 replacement Smoking Status: Former smoker - Past Family History Mother Family Medical History: No Reported History Medications and Allergies Home Medications Medication Instructions Recorded Confirmed Type Aspirin EC [Ecotrin] 81 mg PO HS 12/31/15 11/04/22 History Doxazosin [Cardura] 4 mg PO BID 12/31/15 11/04/22 History Multivit-Min/FA/Lycopen/Lutein 1 tab PO DAILY 12/31/15 11/04/22 History [Centrum Silver Tablet] Omeprazole [PriLOSEC] 40 mg PO DAILY 12/31/15 11/04/22 History Torsemide [Demadex] 5 mg PO DAILY 12/31/15 11/04/22 History hydrALAZINE HCL [Apresoline] 100 mg PO TID PRN 12/31/15 11/04/22 History Ezetimibe [Zetia] 10 mg PO MOTUWETHFR 01/28/19 11/04/22 History Labetalol HCl [Trandate] 600 mg PO BID 01/28/19 11/04/22 History Simvastatin [Zocor] 40 mg PO MOTUWETHFR 01/28/19 11/04/22 History Ubidecarenone [Co Q-10] 100 mg PO MOTUWETHFR 01/28/19 11/04/22 History Vitamin B Complex 1 cap PO DAILY 01/28/19 11/04/22 History allopurinoL [Zyloprim] 100 mg PO BID 01/28/19 11/04/22 History Cholecalciferol [Vitamin D3] 400 unit PO DAILY 04/18/20 11/04/22 History Nitroglycerin Sl Tabs [Nitrostat] 0.4 mg SUBLINGUAL Q5M PRN 04/18/20 11/04/22 History Albuterol Nebulized [Ventolin 2.5 mg INHALATION RT-BID PRN 11/04/22 11/04/22 History Nebulized] Budesonide [Pulmicort] 0.5 mg INHALATION RT-BID PRN 11/04/22 11/04/22 History Cyanocobalamin [Vitamin B-12] 500 mcg PO DAILY 11/04/22 11/04/22 History Pregabalin [Lyrica] 100 mg PO HS 11/04/22 11/04/22 History lisinopriL [Zestril] 2.5 mg PO HS 11/04/22 11/04/22 History tiZANidine HCL [Zanaflex] 4 mg PO HS 11/04/22 11/04/22 History Allergies Allergy/AdvReac Type Severity Reaction Status Date / Time lorazepam [From Ativan] Allergy MAKES HIM Verified 11/04/22 17:29 HYPER Sulfa (Sulfonamide Allergy Rash/Hives Verified 11/04/22 17:29 Antibiotics) Physical Exam Vitals: Vital Signs Temp Pulse Pulse Resp BP BP Pulse Ox 11/05/22 10:39 95 11/05/22 09:52 70 11/05/22 09:33 71 94 L 11/05/22 07:56 18 94 L 11/05/22 07:44 20 11/05/22 07:07 98 F 77 19 162/66 82 L 11/05/22 01:42 98.2 F 83 117/73 90 L 11/04/22 21:00 98.4 F 70 17 184/82 93 L 11/04/22 19:09 83 26 H 172/81 90 L 11/04/22 16:41 68 11/04/22 16:34 66 11/04/22 16:26 66 11/04/22 14:33 98 F 71 26 H 127/71 91 L Intake and Output 11/04/22 11/05/22 11/05/22 22:59 06:59 14:59 Intake Total 180 Output Total 510 380 Balance -510 -200 Intake: Oral 180 Output: Urine 510 380 Other: Weight 104.326 kg GENERAL EXAM: Alert, very pleasant 82-year-old gentleman on 4 L nasal cannula, comfortable in no apparent distress. HEAD: Normocephalic. EYES: Normal reaction of pupils, equal size. NOSE: Clear with pink turbinates. THROAT: No erythema or exudates. NECK: No masses, no JVD. CHEST: No chest wall deformity. LUNGS: Equal air entry with faint end expiratory wheeze, diminished. CVS: S1 and S2 normal with no audible murmur, regular rhythm. ABDOMEN: No hepatosplenomegaly, normal bowel sounds, no guarding or rigidity. SPINE: No scoliosis or deformity SKIN: No rashes CENTRAL NERVOUS SYSTEM: No focal deficits, tone is normal in all 4 extremities. EXTREMITIES: There is trace peripheral edema. No clubbing, no cyanosis. Peripheral pulses are intact. Results - Laboratory Findings CBC and BMP: 11/05/22 04:47 11/05/22 04:47 PT/INR, D-dimer PT 10.6 sec (9.0-12.0) 11/04/22 15:56 INR 1.0 (<1.2) 11/04/22 15:56 D-Dimer 1.18 mg/L FEU (<0.60) H 11/04/22 15:56 Abnormal lab findings: Abnormal Labs 11/04/22 11/04/22 11/04/22 15:56 15:56 15:56 WBC RBC 3.95 L MCV 100.4 H MCH Lymphocytes # Monocytes # Eosinophils # D-Dimer 1.18 H Carbon Dioxide BUN 21 H Creatinine 1.65 H Est GFR (CKD-EPI)AfAm Est GFR (CKD-EPI)NonAf Glucose 115 H Total Protein 6.1 L Albumin 3.4 L Albumin/Globulin Ratio 11/05/22 11/05/22 04:47 04:47 WBC 4.36 L RBC 4.08 L MCV 101.2 H MCH 33.1 H Lymphocytes # 0.83 L Monocytes # 0.08 L Eosinophils # 0 L D-Dimer Carbon Dioxide 19.3 L BUN Creatinine 1.7 H Est GFR (CKD-EPI)AfAm 42.9 L Est GFR (CKD-EPI)NonAf 37.0 L Glucose 277 H Total Protein Albumin 3.7 L Albumin/Globulin Ratio 1.37 L - Diagnostic Findings Chest x-ray: image reviewed Assessment and Plan Assessment: Acute exacerbation of oxygen dependent chronic obstructive pulmonary disease Obstructive sleep apnea maintained on CPAP History of systolic congestive heart failure Former smoker Acute kidney injury Hyperlipidemia Hypertension Benign prostatic hyperplasia History of permanent pacemaker implantation Plan: The patient was seen and evaluated X-ray, VQ scan, labs and medications reviewed Cleared for discharge from the pulmonary standpoint Continue his home pulmonary medications Complete a prednisone taper starting at 30 mg daily Keep his appointment with Dr. Mcnally in our office tomorrow The patient verbalizes understanding and is agreeable to the plan I have personally seen and examined the patient, performed the documentation and the assessment and plan as written. Number of minutes spent on the visit: 20.
[2022-11-05] MEDS: predniSONE 10 MG TAB PO SCH (11:56)
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
[2022-11-05 15:21] VITALS: TEMP 97.7
[2022-11-05] MEDS ORDERED: tiZANidine 4 MG TAB PO SCH (21:00)
[2022-11-05] MEDS ORDERED: ASPIRIN 81 MG PO SCH (21:00)
[2022-11-05] MEDS ORDERED: PREGABALIN 100 MG CAP PO SCH (21:00)
[2022-11-06] MEDS: CYANOCOBALAMIN 500 MCG TAB PO SCH (05:42)
[2022-11-06 08:14] VITALS: BP 177/99; RESP 20
[2022-11-06] MEDS: CHOLECALCIFEROL 10 MCG (400 IU) TABLET PO SCH (08:29)
[2022-11-06] MEDS: EZETIMIBE 10 MG TAB PO SCH (08:29)
[2022-11-06] MEDS: DOXAZOSIN 4 MG TAB PO SCH (08:29)
[2022-11-06] MEDS: predniSONE 10 MG TAB PO SCH (08:29)
[2022-11-06] MEDS: ATORVASTATIN 20 MG TAB PO SCH (08:29)
[2022-11-06] MEDS: PANTOPRAZOLE 40 MG TABLET PO SCH (08:29)
[2022-11-06] MEDS: allopurinoL 100 MG TAB PO SCH (08:29)
[2022-11-06] MEDS: VIT A,C & E-LUTEIN-MINERALS 1 EACH TAB PO SCH (08:30)
[2022-11-06] MEDS: FOLIC ACID-VIT B COMPLEX-VIT C 1 CAP PO SCH (08:30)
[2022-11-06] MEDS: TORSEMIDE 20 MG TAB PO SCH (08:30)
[2022-11-06] MEDS: LABETALOL 200 MG TAB PO SCH (08:30)
[2022-11-06] MEDS ORDERED: amLODIPine 5 MG TAB PO SCH (09:15)
[2022-11-06] MEDS ORDERED: hydrALAZINE HCL 50 MG TAB PO SCH (09:15)
[2022-11-06] MEDS: IPRATROPIUM-ALBUTEROL 3 ML NEB INHALATION SCH (09:25)
[2022-11-06 10:00] VITALS: PULSE 83
--- NOTE | 2022-11-06 10:16 | CA ---
Transthoracic Echo Report Name: Michael Nguyen Age: 82 Gender: M : 1940 Exam Date: 11/05/2022 14:06 Exam Location: [facility] Ht (in): 70 Wt (lb): 230 Ordering Physician: Fauzia Mendoza Attending/Referring Phys: Commercial Artist [employer] Tanisha Stearns RDCS Procedure CPT: Indications: LV function Cardiac Hx: Pacemaker Technical Quality: Technically difficult study Contrast 1: Lumason Total Dose (mL): 3 Contrast 2: Total Dose (mL): MEASUREMENTS (Male / Female) Normal Values 2D ECHO LV Diastolic Diameter PLAX 4.0 cm 4.2 - 5.9 / 3.9 - 5.3 cm LV Systolic Diameter PLAX 3.0 cm IVS Diastolic Thickness 1.2 cm 0.6 - 1.0 / 0.6 - 0.9 cm LVPW Diastolic Thickness 1.2 cm 0.6 - 1.0 / 0.6 - 0.9 cm LV Relative Wall Thickness 0.6 RV Internal Dim ED PLAX 3.2 cm LA Systolic Diameter LX 3.8 cm 3.0 - 4.0 / 2.7 - 3.8 cm LA Volume 72.7 cm??? 18 - 58 / 22 - 52 cm??? M-MODE Aortic Root Diameter MM 3.6 cm MV E Point Septal Separation 1.0 cm AV Cusp Separation MM 2.2 cm DOPPLER AV Peak Velocity 146.1 cm/s AV Peak Gradient 8.5 mmHg MV Area PHT 4.2 cm??? Mitral E Point Velocity 108.1 cm/s Mitral A Point Velocity 115.4 cm/s Mitral E to A Ratio 0.9 MV Deceleration Time 178.6 ms MV E' Velocity 8.6 cm/s Mitral E to MV E' Ratio 12.6 TR Peak Velocity 311.8 cm/s TR Peak Gradient 38.9 mmHg Right Ventricular Systolic Press 42.6 mmHg FINDINGS Left Ventricle Left ventricular ejection fraction is estimated at 55-60 %. Left ventricular cavity size normal. Mildly increased septal wall thickness. Normal left ventricular wall motion. Right Ventricle Normal right ventricular size and function. Mild pulmonary hypertension. Right Atrium Normal right atrial size. Left Atrium Moderately increased left atrial volume. Mildly increased left atrial area. Mitral Valve Structurally normal mitral valve. Aortic Valve Trileaflet aortic valve. No aortic valve stenosis or regurgitation. Aortic valve sclerosis. Tricuspid Valve Structurally normal tricuspid valve. Mild tricuspid regurgitation. Pulmonic Valve Structurally normal pulmonic valve. No pulmonic regurgitation. Pericardium Normal pericardium. No pericardial effusion. Aorta Normal size aortic root and proximal ascending aorta. CONCLUSIONS LVH with preserved systolic function Dictating difficult study therefore echo contrast was used Previewed by: Dr. David Sousa MD (Electronically Signed) Final Date: 06 Nov 2022 10:15
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
--- NOTE | 2022-11-06 11:09 | P.CRDCN ---
History of Present Illness Consult date: 11/05/22 History of present illness: HISTORY OF PRESENT ILLNESS: This is a 82-year-old male with a past medical history significant for coronary artery disease with previous stenting, hypertension, hyperlipidemia, sick sinus syndrome with previous pacemaker implantation, congestive heart failure, and COPD with home oxygen use. Patient follows in the office with Dr. Lares. We have been asked to see the patient in consultation for chest pain. Patient e xamined at the bedside. Patient is admitted to the hospital secondary to COPD exacerbation. The patient currently denies having any chest pain or pressure. He does report having some discomfort upon exertion associated with increased shortness of breath. He is feeling well this morning and is hoping to be discharged. * EKG reveals paced rhythm * Chest xray mild cardiomegaly, pulmonary vascular congestion and bilateral pleural effusions. * Laboratory data: WBC 4.36. Hemoglobin 13.5. Platelet count 209. Sodium 137. Potassium 4.8. BUN 24. Creatinine 1.7. Troponin negative 1. ProBNP 529 * Current home cardiac medications include lisinopril 2.5 mg at night, Demadex 5 mg daily, Zocor 40 mg Thursday, Zetia 10 mg Thursday, aspirin 81 mg at night * Most recent echocardiogram obtained in the office in February 2020 revealed ejection fraction 50%, moderate TR, mild MR * Cardiac catheterization history: December 2006 revealing 80% proximal RCA stenosis. Patient underwent stenting of the proximal RCA. REVIEW OF SYSTEMS: At the time of my exam: CONSTITUTIONAL: Denies fever or chills. HEENT: Denies blurred vision, vision changes, or eye pain. Denies hemoptysis CARDIOVASCULAR: Denies chest pain. Denies orthopnea. Denies PND. Denies palpitations RESPIRATORY: Denies shortness of breath. GASTROINTESTINAL: Denies abdominal pain. Denies nausea or vomiting. HEMATOLOGIC: Denies bleeding disorders. GENITOURINARY: Denies any blood in urine. SKIN: Denies pruitis. Denies rash. PHYSICAL EXAM: VITAL SIGNS: Reviewed. GENERAL: Well-developed in no acute distress. HEENT: Head is normocephalic. Pupils are equal, round. Sclerae anicteric. Mucous membranes of the mouth are moist. Neck supple. No JVD or thyromegaly LUNGS: Respirations even and unlabored. Lungs essentially clear to auscultation bilaterally. HEART: Regular rate and rhythm. S1 and S2 heard. ABDOMEN: Soft. Nondistended. Nontender. EXTREMITIES: Normal range of motion. No clubbing or cyanosis. Peripheral p ulses intact. No lower extremity edema NEUROLOGIC: Awake and alert. Oriented x 3. ASSESSMENT: Shortness of breath Acute exacerbation of COPD Acute kidney injury Acute on chronic hypoxic respiratory failure, patient on home O2 Chronic congestive heart failure with preserved EF, most recently 50% in 2019 Coronary artery disease with previous stenting of the RCA, 2006 Hypertension Hyperlipidemia History of permanent pacemaker implantation Former nicotine dependence PLAN: Patient states he takes hydralazine at home in the morning and in the afternoon scheduled. He states he will recheck his blood pressure in the middle of the day and if it is elevated he takes an additional dose. Patient's blood pressures have been elevated during admission. Instructed patient to take hydralazine 100 mg 3 times a day Continue additional cardiac medications Patient may be discharged home today from a cardiac standpoint Nurse practitioner note has been reviewed by physician. Signing provider agrees with the documented findings, assessment, and plan of care. Past Medical History Past Medical History: Hyperlipidemia, Hypertension Additional Past Medical History / Comment(s): pancreatitis, back spasms with activity History of Any Multi-Drug Resistant Organisms: None Reported Past Surgical History: Cholecystectomy Additional Past Surgical History / Comment(s): pacemaker Past Anesthesia/Blood Transfusion Reactions: No Reported Reaction Additional Past Anesthesia/Blood Transfusion Reaction / Comment(s): difficult intubation-needs pediatric tube due to narrow opening Date of Last Stent Placement:: unknown Type of Cardiac Device: Permanent Pacemaker Device Placement Date:: 2018 replacement Smoking Status: Former smoker - Past Family History Mother Family Medical History: No Reported History Medications and Allergies Home Medications Medication Instructions Recorded Confirmed Type Aspirin EC [Ecotrin Low Dose] 81 mg PO HS 12/31/15 11/04/22 History Doxazosin [Cardura] 4 mg PO BID 12/31/15 11/04/22 History Multivit-Min/FA/Lycopen/Lutein 1 tab PO DAILY 12/31/15 11/04/22 History [Centrum Silver Tablet] Omeprazole [PriLOSEC] 40 mg PO DAILY 12/31/15 11/04/22 History Torsemide [Demadex] 5 mg PO DAILY 12/31/15 11/04/22 History Ezetimibe [Zetia] 10 mg PO MOTUWETHFR 01/28/19 11/04/22 History Labetalol HCl [Trandate] 600 mg PO BID 01/28/19 11/04/22 History Simvastatin [Zocor] 40 mg PO MOTUWETHFR 01/28/19 11/04/22 History Ubidecarenone [Co Q-10] 100 mg PO MOTUWETHFR 01/28/19 11/04/22 History Vitamin B Complex 1 cap PO DAILY 01/28/19 11/04/22 History allopurinoL [Zyloprim] 100 mg PO BID 01/28/19 11/04/22 History Cholecalciferol [Vitamin D3 (10 400 unit PO DAILY 04/18/20 11/04/22 History Mcg = 400 Iu)] Nitroglycerin Sl Tabs [Nitrostat] 0.4 mg SUBLINGUAL Q5M PRN 04/18/20 11/04/22 History Albuterol Nebulized [Ventolin 2.5 mg INHALATION RT-BID PRN 11/04/22 11/04/22 History Nebulized] Budesonide [Pulmicort] 0.5 mg INHALATION RT-BID PRN 11/04/22 11/04/22 History Cyanocobalamin [Vitamin B-12] 500 mcg PO DAILY 11/04/22 11/04/22 History Pregabalin [Lyrica] 100 mg PO HS 11/04/22 11/04/22 History lisinopriL [Zestril] 2.5 mg PO HS 11/04/22 11/04/22 History tiZANidine HCL [Zanaflex] 4 mg PO HS 11/04/22 11/04/22 History hydrALAZINE HCL [Apresoline] 100 mg PO TID 30 Days #90 tab 11/06/22 Rx Allergies Allergy/AdvReac Type Severity Reaction Status Date / Time lorazepam [From Ativan] Allergy MAKES HIM Verified 11/04/22 17:29 HYPER Sulfa (Sulfonamide Allergy Rash/Hives Verified 11/04/22 17:29 Antibiotics) Physical Exam Vitals: Vital Signs Temp Pulse Pulse Resp BP BP Pulse Ox 11/05/22 12:46 78 11/05/22 12:31 78 11/05/22 10:39 95 11/05/22 09:52 70 11/05/22 09:33 71 94 L 11/05/22 07:56 18 94 L 11/05/22 07:44 20 11/05/22 07:07 98 F 77 19 162/66 82 L 11/05/22 01:42 98.2 F 83 117/73 90 L 11/04/22 21:00 98.4 F 70 17 184/82 93 L 11/04/22 19:09 83 26 H 172/81 90 L 11/04/22 16:41 68 11/04/22 16:34 66 11/04/22 16:26 66 11/04/22 14:33 98 F 71 26 H 127/71 91 L Intake and Output 11/04/22 11/05/22 11/05/22 22:59 06:59 14:59 Intake Total 180 Output Total 510 380 Balance -510 -200 Intake: Oral 180 Output: Urine 510 380 Other: Weight 104.326 kg Results 11/05/22 04:47 11/05/22 04:47 Cardiac Enzymes 11/04/22 11/04/22 11/05/22 Range/Units 15:56 15:56 04:47 AST 32 27 (17-59) U/L Troponin I <0.012 (0.000-0.034) ng/mL Coagulation 11/04/22 Range/Units 15:56 PT 10.6 (9.0-12.0) sec APTT 25.2 (22.0-30.0) sec CBC 11/04/22 11/05/22 Range/Units 15:56 04:47 WBC 6.7 4.36 L (3.8-10.6) k/uL RBC 3.95 L 4.08 L (4.30-5.90) m/uL Hgb 13.2 13.5 (13.0-17.5) gm/dL Hct 39.6 41.3 (39.0-53.0) % Plt Count 172 209 (150-450) k/uL Comprehensive Metabolic Panel 11/04/22 11/05/22 Range/Units 15:56 04:47 Sodium 139 137 (137-145) mmol/L Potassium 4.1 4.8 (3.5-5.1) mmol/L Chloride 104 103 (98-107) mmol/L Carbon Dioxide 27 19.3 L (22-30) mmol/L BUN 21 H 24.4 (9-20) mg/dL Creatinine 1.65 H 1.7 H (0.66-1.25) mg/dL Glucose 115 H 277 H (74-99) mg/dL Calcium 8.4 9.1 (8.4-10.2) mg/dL AST 32 27 (17-59) U/L ALT 27 27 (4-49) U/L Alkaline Phosphatase 96 79 (38-126) U/L Total Protein 6.1 L 6.4 (6.3-8.2) g/dL Albumin 3.4 L 3.7 L (3.5-5.0) g/dL Current Medications Generic Name Dose Route Start Last Admin Trade Name Freq PRN Reason Stop Dose Admin Albuterol/Ipratropium 3 ml 11/04/22 20:00 11/05/22 12:31 Ipratropium-Albuterol 3 Ml Neb INHALATION 3 ml RT-QID LAUREN Administration Albuterol/Ipratropium 3 ml 11/04/22 18:09 Ipratropium-Albuterol 3 Ml Neb INHALATION RT-Q2H PRN Shortness Of Breath Or Wheezing Allopurinol 100 mg 11/05/22 09:00 11/05/22 07:48 Allopurinol 100 Mg Tab PO 100 mg BID LAUREN Administration Aspirin 81 mg 11/05/22 21:00 Aspirin 81 Mg PO HS [facility] Atorvastatin Calcium 20 mg 11/05/22 09:00 11/05/22 07:48 Atorvastatin 20 Mg Tab PO 20 mg [email or web address] LAUREN Administration Budesonide 0.5 mg 11/04/22 22:03 11/05/22 09:32 Budesonide 0.5 Mg/2 Ml Nebu INHALATION 0.5 mg RT-BID PRN Administration Shortness Of Breath Cholecalciferol 10 mcg 11/05/22 09:00 11/05/22 07:50 Cholecalciferol 10 Mcg (400 Iu) Tablet PO 10 mcg DAILY LAUREN Administration Cyanocobalamin 500 mcg 11/05/22 07:30 11/05/22 05:38 Cyanocobalamin 500 Mcg Tab PO 500 mcg [id number] LAUREN Administration Doxazosin Mesylate 4 mg 11/04/22 23:00 11/05/22 07:49 Doxazosin 4 Mg Tab PO 4 mg BID LAUREN Administration Ezetimibe 10 mg 11/05/22 09:00 11/05/22 07:48 Ezetimibe 10 Mg Tab PO 10 mg [email or web address] LAUREN Administration Hydralazine HCl 100 mg 11/04/22 22:03 Hydralazine Hcl 50 Mg Tab PO TID PRN high blood pressure Labetalol HCl 600 mg 11/04/22 23:00 11/05/22 07:49 Labetalol 200 Mg Tab PO 600 mg BID LAUREN Administration Lisinopril 2.5 mg 11/04/22 22:30 11/04/22 23:08 Lisinopril 2.5 Mg Tab PO 2.5 mg HS LAUREN Administration Multivit/Ca Carb/B Cmplx/FA/Prenat 1 each 11/05/22 09:00 11/05/22 07:49 Folic Acid-Vit B Complex-Vit C 1 Cap PO 1 each DAILY LAUREN Administration Multivitamins/Minerals 1 each 11/05/22 09:00 11/05/22 07:49 Vit A,C & P-Pthtcb-Ylcifion 1 Each Tab PO 1 each DAILY LAUREN Administration Naloxone HCl 0.2 mg 11/04/22 18:09 Naloxone 0.4 Mg/Ml 1 Ml Vial IVP Q2M PRN Opioid Reversal Nitroglycerin 0.4 mg 11/04/22 22:03 Nitroglycerin Sl Tabs 0.4 Mg Tab SUBLINGUAL Q5M PRN Chest Pain Pantoprazole Sodium 40 mg 11/05/22 09:00 11/05/22 07:48 Pantoprazole 40 Mg Tablet PO 40 mg DAILY LAUREN Administration Prednisone 30 mg 11/05/22 11:45 11/05/22 11:56 Prednisone 10 Mg Tab PO 30 mg DAILY LAUREN Administration Pregabalin 100 mg 11/05/22 21:00 Pregabalin 100 Mg Cap PO HS LAUREN Tizanidine HCl 4 mg 11/05/22 21:00 Tizanidine 4 Mg Tab PO HS LAUREN Torsemide 5 mg 11/04/22 23:00 11/05/22 07:50 Torsemide 20 Mg Tab PO 5 mg DAILY LAUREN Administration Intake and Output 11/04/22 11/05/22 11/05/22 22:59 06:59 14:59 Intake Total 180 Output Total 510 380 Balance -510 -200 Intake: Oral 180 Output: Urine 510 380 Other: Weight 104.326 kg 11/05/22 04:47 11/05/22 04:47
[2022-11-06 11:16] LABS: African American GFR (CKD) 46.9 (60.0-200.0); Anion Gap 11.9 mmol/L (10.00-18.00); BUN/Creat Ratio 20.57 Ratio (12.00-20.00); Blood Urea Nitrogen 32.5 mg/dL (9.0-27.0); Calcium 9.1 mg/dL (8.7-10.3); Carbon Dioxide 23.9 mmol/L (20.0-27.5); Non-African American GFR(CKD) 40.4 (60.0-200.0); Potassium 4.3 mmol/L (3.5-5.5)
--- NOTE | 2022-11-06 11:39 | P.PN ---
Subjective Progress Note Date: 11/06/22 This is a very pleasant 82-year-old male patient with a known history of severe oxygen dependent chronic obstructive pulmonary disease maintained on oxygen at 4 L per nasal cannula. He also has obstructive sleep apnea maintained on CPAP. He is a former smoker, hypertension, hyperlipidemia, obesity, sick sinus syndrome status post permanent pacemaker implantation, systolic congestive heart failure with an ejection fraction 40-45%. Yesterday he was at his primary care provider's office and was found to have low oxygen and referred to the emergency room. He had been having issues with shortness of breath which have been readily worsening since April 2022. 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 He was actually scheduled to see Dr. Mcnally in our office tomorrow as a new patient. Chest x-ray reveals mild cardiomegaly, pulmonary vascular congestion and bilateral pleural effusions. Some evidence of fluid volume overload. EKG reveals a paced rhythm. VQ scan was limited with no perfusion defects consistent with very low probability for pulmonary embolism. White count 4.3. Hemoglobin 13.5. Platelets 209. Sodium 137. Potassium 4.8. Bicarb 19. BUN 24. Creatinine 1.7. Glucose 277. Troponin negative times one. ProBNP 529. AST is 27. ALT 27. He is seen today in consultation on the regular medical floor. He is currently sitting up at the bedside. Awake and alert in no acute distress. Breathing a bit easier today compared to yesterday. Maintaining good O2 saturations in the 90s on 4 L/m per nasal cannula. He is afebrile. Hemodynamically stable. He's been initiated and DuoNeb inhalations, Pulmicort inhalations. He is on oral diuretics. The patient is seen today 11/06/2022 in follow-up on the regular medical floor. He is currently sitting up at the bedside. Awake and alert in no acute distress. He denies any worsening shortness of breath, cough or congestion. He is maintaining O2 saturations in the 90s on 5 L/m per nasal cannula. Sodium 139. Potassium 4.3. Bicarb 24. BUN 13. Creatinine 1.6. Glucose 165. He is continued on DuoNeb inhalations, Pulmicort inhalations, prednisone taper. Objective - Vital Signs Vital signs: Vital Signs Temp 97.7 F 11/06/22 07:08 Pulse 70 11/06/22 09:36 Resp 20 11/06/22 08:00 BP 177/99 11/06/22 07:08 Pulse Ox 97 11/06/22 09:28 FiO2 Intake & Output 11/05/22 11/06/22 11/06/22 18:59 06:59 18:59 Intake Total 540 180 Output Total 380 Balance 160 180 Intake: Oral 540 180 Output: Urine 380 Other: Voiding Method Toilet - Exam GENERAL EXAM: Alert, pleasant 82-year-old gentleman on 5 L nasal cannula, comfortable in no apparent distress. HEAD: Normocephalic. EYES: Normal reaction of pupils, equal size. NOSE: Clear with pink turbinates. THROAT: No erythema or exudates. NECK: No masses, no JVD. CHEST: No chest wall deformity. LUNGS: Equal air entry with faint end expiratory wheeze, diminished. CVS: S1 and S2 normal with no audible murmur, regular rhythm. ABDOMEN: No hepatosplenomegaly, normal bowel sounds, no guarding or rigidity. SPINE: No scoliosis or deformity SKIN: No rashes CENTRAL NERVOUS SYSTEM: No focal deficits, tone is normal in all 4 extremities. EXTREMITIES: There is trace peripheral edema. No clubbing, no cyanosis. Peripheral pulses are intact. - Labs CBC & Chem 7: 11/05/22 04:47 11/06/22 07:19 Labs: Abnormal Lab Results - Last 24 Hours (Table) 11/06/22 Range/Units 07:19 BUN 32.5 H (9.0-27.0) mg/dL Creatinine 1.6 H (0.6-1.5) mg/dL Est GFR (CKD-EPI)AfAm 46.9 L (60.0-200.0) Est GFR (CKD-EPI)NonAf 40.4 L (60.0-200.0) BUN/Creatinine Ratio 20.57 H (12.00-20.00) Ratio Glucose 165 H (70-110) mg/dL Assessment and Plan Assessment: Acute exacerbation of oxygen dependent chronic obstructive pulmonary disease Obstructive sleep apnea maintained on CPAP History of systolic congestive heart failure Former smoker Acute kidney injury Hyperlipidemia Hypertension Benign prostatic hyperplasia History of permanent pacemaker implantation Plan: The patient was seen and evaluated Labs and medications reviewed Cleared for discharge from the pulmonary standpoint Continue his home pulmonary medications Complete a prednisone taper starting at 30 mg daily I have personally seen and examined the patient, performed the documentation and the assessment and plan as written. Number of minutes spent on the visit: 10.
[2022-11-06 13:57] LABS: Basophils # (A) 0.01 X 10*3/uL (0.00-0.10); Basophils % (A) 0.1 %; Eosinophils # (A) 0.01 X 10*3/uL (0.04-0.35); Eosinophils % (A) 0.1 %; HCT 39.3 % (39.6-50.0); HGB 13.1 g/dL (13.0-17.0); Immature Grans, Automated 0.7 %; Lymphocytes # (A) 1.43 X 10*3/uL (0.90-5.00); Lymphocytes % (A) 14.2 %; MCH 33.6 pg (27.0-32.0); MCHC 33.3 g/dL (32.0-37.0); MCV 100.8 fL (80.0-97.0); Mean Platelet Volume 10.6 fL (9.5-12.2); NRBC Per 100 WBC 0 /100 WBCS (0.0-0.0); Neutrophils # (A) 7.73 X 10*3/uL (1.80-7.70); Neutrophils % (A) 76.9 %; Platelet Count 215 X 10*3/uL (140-440); RDW 14.4 % (11.5-14.5); WBC 10.05 X 10*3/uL (4.50-10.00)
== END 2022-11-06 12:12 | disposition home or self-care (01) ==
LOC: EC 14:30 → 4SSUR 18:11 → INTOOBSV 18:11 → 4SSUR 19:32 → UNDODISIN 11-06 12:12
PROVIDERS: ADMIT Family Medicine; ATTEND Family Medicine
DX: I13.0 Hypertensive heart and chronic kidney disease with heart failure and stage 1 through stage 4 chronic kidney disease, or unspecified chronic kidney disease (principal); R07.89 Other chest pain; J44.1 Chronic obstructive pulmonary disease with (acute) exacerbation; N17.9 Acute kidney failure, unspecified; J96.21 Acute and chronic respiratory failure with hypoxia; N18.30 Chronic kidney disease, stage 3 unspecified; N40.0 Benign prostatic hyperplasia without lower urinary tract symptoms; E66.9 Obesity, unspecified; M54.16 Radiculopathy, lumbar region; I50.40 Unspecified combined systolic (congestive) and diastolic (congestive) heart failure; I49.5 Sick sinus syndrome; G47.33 Obstructive sleep apnea (adult) (pediatric); I25.10 Atherosclerotic heart disease of native coronary artery without angina pectoris; I27.20 Pulmonary hypertension, unspecified; E78.2 Mixed hyperlipidemia; I08.2 Rheumatic disorders of both aortic and tricuspid valves; M10.9 Gout, unspecified; Z79.82 Long term (current) use of aspirin; Z79.899 Other long term (current) drug therapy; Z88.2 Allergy status to sulfonamides; Z88.8 Allergy status to other drugs, medicaments and biological substances; Z90.49 Acquired absence of other specified parts of digestive tract; Z95.0 Presence of cardiac pacemaker; Z99.81 Dependence on supplemental oxygen; Z87.891 Personal history of nicotine dependence; Z68.33 Body mass index [BMI] 33.0-33.9, adult
CPT/HCPCS: 96374; 99285; 36415; 94640 ×5; 94760 ×2; 93005; 85379; 83880; 80053 ×2; 80048; 82803; 83605; 83735; 84484; 85025 ×3; 85610; 85730; 71046; 78582; G0378 ×3; C8929; A9540; A9567; J2930; J7512 ×2; Q9950; 93306

== ENCOUNTER → 2023-01-08 | Outpatient (CLI) | payer MEDICARE ==
--- NOTE | 2023-01-08 15:59 | CT ---
EXAMINATION TYPE: CT chest wo con CT DLP: 1098.4 mGycm, Automated exposure control for dose reduction was used. DATE OF EXAM: 01/08/2023 2:46 PM COMPARISON: CT most recent 11/30/2020. CLINICAL INDICATION:Male, 82 years old with history of J96.11 C HRONIC RESPIRATORY FAILURE WITH HYPOXIA; PHH, CHRONIC RESPIRATORY FAILURE WITH HYPOXIA TECHNIQUE: Multiple axial images were obtained through the chest. Sagittal and coronal reformats were created for review. Contrast used: mL of (None if empty) Oral contrast used: (None if empty) FINDINGS: LUNGS/ PLEURA: Moderate to severe centrilobular emphysema changes with masslike consolidation in the left lung apex which is new from prior measuring 18 x 14 mm. Additional anterior left upper lung stre aky atelectasis/scarring. Right major fissure probable intrafissural fluid. Left lower lung calcified granuloma. AIRWAY: Patent with mild bronchiectasis. HEART: Heart is mildly enlarged for size. The heart demonstrates cardiac conduction leads in the righ t ventricle and right atrium. MEDIASTINUM: No gross evidence of adenopathy. Partially calcified lymph nodes in the left perihilar r egion. VASCULATURE: No aortic aneurysm. MUSCULOSKELETAL: Multilevel degeneration changes throughout the spine with fixation hardware at T7-T1 0. Hardware appears intact. Severe degeneration with osteophyte formation, disc space narrowing and f acet joint arthropathy is present. SOFT TISSUES/LYMPH NODES: Unremarkable. LOWER NECK: No significant findings. UPPER ABDOMEN: No significant findings. IMPRESSION: 1. New left upper lung 18 x 14 mm no nodule with central cystic areas.. Findings concerning for melecio gnancy. Consider PET/CT for further evaluation 2. Severe emphysema changes throughout the lungs. 3. Sequela of granulomatous disease predominantly involving the left perihilar lymph nodes and left lungs with calcified granulomas.
== END | disposition home or self-care (01) ==
LOC: RADCTMAIN 14:22
PROVIDERS: ATTEND Internal Medicine
DX: J43.2 Centrilobular emphysema (principal); J96.11 Chronic respiratory failure with hypoxia
CPT/HCPCS: 71250

== ENCOUNTER → 2023-01-30 | Outpatient (CLI) | payer MEDICARE ==
--- NOTE | 2023-01-30 23:24 | PE ---
EXAMINATION TYPE: PET CT fusion skull to thigh DATE OF EXAM: 01/30/2023 CLINICAL INDICATION:Male, 82 years old with history of R91.1; TECHNIQUE: Following the intravenous administration of 10.90 mCi of F-18 FDG, whole body images are performed from the skull base to the midthigh. Images are reviewed on the computer in the coronal, axial, and sagittal planes. Reconstructed rotating images are created on independent workstation and reviewed on the computer. A non-contrast CT is performed in conjunction with the PET scan. Glucose level 113 mg/dL CT DLP: 467 mGycm, Automated exposure control for dose reduction was used. COMPARISON: CT 01/08/2023, 04/23/2015. PET/CT None, FINDINGS: Mediastinal SUV mean is 1.5. Hepatic parenchyma SUV mean is 2.3. SKULL BASE AND NECK: Left superficial parotid gland mass max SUV 11.5 measuring 3.2 x 3.0 cm previously 1.6 x 1.2 cm on CHEST, MEDIASTINUM, AND HILAR REGION: Interval decrease in size of left upper lung cystic nodule now measuring 9 x 6 mm, previously 18 x 14 mm. Max SUV 0.7. ABDOMEN AND PELVIS: No suspicious radiotracer activity. MUSCULOSKELETAL STRUCTURES: No suspicious radiotracer activity. OTHER CT: Atherosclerosis of the arterial vasculature. The left chest wall cardiac conduction device with bleed terminating in the and right ventricle and right atrium. Fixation hardware in the lower simeon mbar spine. The gallbladder surgically absent. Scattered colonic diverticula.r the prostate gland is enlarged measuring up to 5.7 cm. Bilateral fat-containing inguinal hernias. Moderate to severe emphys jenni changes throughout the lungs. Loculated fluid along the right major fissure. The heart is mildly enlarged for size. IMPRESSION: 1. Left upper lung nodule has decreased in size suggesting infectious/inflammatory process. 2. Left parotid gland lesion which is indeterminate. This has increased in size from 2015 if not alr elena performed tissue sampling is recommended.
== END | disposition home or self-care (01) ==
LOC: RADPETMAIN 15:02
PROVIDERS: ATTEND Internal Medicine
DX: R91.1 Solitary pulmonary nodule (principal)
CPT/HCPCS: 78815; A9552

== ENCOUNTER → 2023-03-04 | Outpatient (CLI) | payer MEDICARE ==
[2023-03-04 16:18] LABS: Appearance,Urine Clear (Clear); Bilirubin,Urine Negative (Negative); Blood,Urine Negative (Negative); Color,Urine Yellow (Yellow); Ketones,Urine Negative (Negative); Nitrite,Urine Negative (Negative); PH, Urine 6.5; Specific Gravity,Urine 1.014 (1.001-1.030); Urobilinogen,Urine 0.2 E.U./DL
[2023-03-04 16:32] LABS: Basophils # (A) 0.06 X 10*3/uL (0.00-0.10); Basophils % (A) 0.7 %; Eosinophils # (A) 0.25 X 10*3/uL (0.04-0.35); HCT 49.3 % (39.6-50.0); HGB 15.8 d/dL (13.0-17.0); Lymphocytes # (A) 2.39 X 10*3/uL (0.90-5.00); Lymphocytes % (A) 28.9 %; MCH 32.4 pg (27.0-32.0); MCV 101.2 FL (80.0-97.0); Mean Platelet Volume 11.4 FL (9.5-12.2); Monocytes # (A) 0.73 X 10*3/uL (0.20-1.00); Monocytes % (A) 8.8 %; NRBC Per 100 WBC 0 X 10*3/uL (0.00-0.01); Neutrophils # (A) 4.79 X 10*3/uL (1.80-7.70); Platelet Count 136 X 10*3/uL (140-440); RBC 4.87 X 10*6/uL (4.40-5.60); WBC 8.27 X 10*3/uL (4.50-10.00)
[2023-03-04 17:00] LABS: % Iron Saturation 21.47 (15.00-50.00); ALT 32 U/L (10-49); AST 26 U/L (14-35); Albumin 4.2 d/dL (3.8-4.9); Albumin/Globulin Ratio 1.68 Ratio (1.60-3.17); Alkaline Phosphatase 77 U/L (41-126); BUN/Creat Ratio 14.75 Ratio (12.00-20.00); Blood Urea Nitrogen 23.6 mg/dL (9.0-27.0); Calcium 9.4 mg/dL (8.7-10.3); Carbon Dioxide 25.8 mmol/L (21.6-31.8); Chloride 105 mmol/L (96-109); Chol/HDL Ratio 2.14 Ratio; Globulin 2.5 d/dL (1.6-3.3); Glucose 110 mg/dL (70-110); Iron 79 UG/DL (65-175); Magnesium 1.8 mg/dL (1.5-2.4); Phosphorus 4.1 mg/dL (2.4-5.1); Potassium 4.3 mmol/L (3.5-5.5); Sodium 143 mmol/L (135-145); Total Bilirubin 0.4 mg/dL (0.3-1.2); Total Iron Binding Capacity 368 UG/DL (228-460); Total Protein 6.7 d/dL (6.2-8.2); Uric Acid 7.2 mg/dL (3.7-8.7)
== END | disposition home or self-care (01) ==
LOC: LABWHC1 10:18
PROVIDERS: ATTEND Internal Medicine Nephrology
DX: E78.2 Mixed hyperlipidemia (principal); N18.32 Chronic kidney disease, stage 3b
CPT/HCPCS: 36415; 80053; 80061; 81001; 82306; 82728; 83540; 83550; 83735; 83970; 84100; 84550; 85025

== ENCOUNTER 2023-04-02 14:18 | Emergency (ER) | payer MEDICARE ==
[2023-04-02] MEDS ORDERED: SODIUM CHLORIDE 0.9% 1,000 ML IV STA (14:43)
--- NOTE | 2023-04-02 14:43 | ED ---
Dizziness HPI - General Chief Complaint: Dizziness Stated Complaint: Dehydration Time Seen by Provider: 04/02/23 14:43 Source: patient, RN notes reviewed, old records reviewed Mode of arrival: EMS Limitations: no limitations - History of Present Illness Initial Comments: This is an 82-year-old male to the emergency department for evaluation today. Patient presents today for evaluation of a syncopal event, states patient was walking around aimlessly in the kitchen she has mostly He said he was trying to get some water to drink but he was not at the sink of the face. Patient then became very lightheaded and went to the ground did not fall she was able to safely get him to the ground without injury. He has passed out multiple times this for almost passed out today. He himself remained without complaint no chest pain no shortness of breath currently. Patient does suffer from COPD hypoxia with significant oxygen requirement MD Complaint: dizziness, lightheadedness -: days(s) Timing: gradual onset Description: sense of movement History of Same: No History of Trauma: No Severity: moderate Worsens With: nothing Associated Symptoms: denies other symptoms - Related Data Home Medications Medication Instructions Recorded Confirmed Aspirin EC [Ecotrin Low Dose] 81 mg PO HS 12/31/15 04/02/23 Doxazosin [Cardura] 4 mg PO BID 12/31/15 04/02/23 Multivit-Min/FA/Lycopen/Lutein 1 tab PO DAILY 12/31/15 04/02/23 [Centrum Silver Tablet] Omeprazole [PriLOSEC] 40 mg PO DAILY 12/31/15 04/02/23 Ezetimibe [Zetia] 10 mg PO MOTUWETHFR 01/28/19 04/02/23 Labetalol HCl [Trandate] 300 mg PO BID 01/28/19 04/02/23 Simvastatin [Zocor] 40 mg PO MOTUWETHFR 01/28/19 04/02/23 Ubidecarenone [Co Q-10] 100 mg PO DAILY 01/28/19 04/02/23 Vitamin B Complex 1 cap PO DAILY 01/28/19 04/02/23 allopurinoL [Zyloprim] 100 mg PO DAILY 01/28/19 04/02/23 Nitroglycerin Sl Tabs [Nitrostat] 0.4 mg SUBLINGUAL Q5M PRN 04/18/20 04/02/23 Albuterol Nebulized [Ventolin 2.5 mg INHALATION RT-QID PRN 11/04/22 04/02/23 Nebulized] Cyanocobalamin [Vitamin B-12] 1,000 mcg PO DAILY 11/04/22 04/02/23 Pregabalin [Lyrica] 100 mg PO HS 11/04/22 04/02/23 lisinopriL [Zestril] 2.5 mg PO HS 11/04/22 04/02/23 tiZANidine HCL [Zanaflex] 4 mg PO HS 11/04/22 04/02/23 Cholecalciferol [Vitamin D3 (25 25 mcg PO DAILY 04/02/23 04/02/23 Mcg = 1000 Iu)] Fluticasone/Umeclidin/Vilanter 1 puff INHALATION RT-DAILY 04/02/23 04/02/23 [Trelegy Ellipta 100-62.5-25] Hydrocortisone Cream 1 applic TOPICAL BID PRN 04/02/23 04/02/23 [Hydrocortisone 2.5% Cream] Ipratropium-Albuterol Nebulize 3 ml INHALATION RT-QID PRN 04/02/23 04/02/23 [Duoneb 0.5 mg-3 mg/3 ml Soln] Ketoconazole 2% Shampoo [Nizoral] 1 applic TOPICAL DAILY PRN 04/02/23 04/02/23 Tacrolimus [Protoptic 0.1%] 1 applic TOPICAL BID PRN 04/02/23 04/02/23 Torsemide [Demadex] 5 mg PO DAILY 04/02/23 04/02/23 Triamcinolone 0.5% Ointment 1 applic TOPICAL BID PRN 04/02/23 04/02/23 hydrALAZINE HCL [Apresoline] 100 mg PO TID 04/02/23 04/02/23 predniSONE 5 mg PO DAILY 04/02/23 04/02/23 Allergies Allergy/AdvReac Type Severity Reaction Status Date / Time lorazepam [From Ativan] Allergy Hyper, Verified 04/02/23 15:53 anxiety Sulfa (Sulfonamide Allergy Rash/Hives Verified 04/02/23 15:53 Antibiotics) Review of Systems ROS Statement: Those systems with pertinent positive or pertinent negative responses have been documented in the HPI. ROS Other: All systems not noted in ROS Statement are negative. Past Medical History Past Medical History: Hyperlipidemia, Hypertension Additional Past Medical History / Comment(s): pancreatitis, back spasms with activity History of Any Multi-Drug Resistant Organisms: None Reported Past Surgical History: Cholecystectomy Additional Past Surgical History / Comment(s): pacemaker Past Anesthesia/Blood Transfusion Reactions: No Reported Reaction Additional Past Anesthesia/Blood Transfusion Reaction / Comment(s): difficult intubation-needs pediatric tube due to narrow opening Date of Last Stent Placement:: unknown Type of Cardiac Device: Permanent Pacemaker Device Placement Date:: 2019 replacement Past Psychological History: No Psychological Hx Reported Smoking Status: Former smoker Past Alcohol Use History: None Reported, Daily Past Drug Use History: None Reported - Past Family History Mother Family Medical History: No Reported History General Exam Limitations: no limitations General appearance: alert, in no apparent distress Head exam: Present: atraumatic, normocephalic, normal inspection Eye exam: Present: normal appearance, PERRL, EOMI. Absent: scleral icterus, conjunctival injection, periorbital swelling ENT exam: Present: normal exam, mucous membranes moist Neck exam: Present: normal inspection. Absent: tenderness, meningismus, lymphadenopathy Respiratory exam: Present: normal lung sounds bilaterally. Absent: respiratory distress, wheezes, rales, rhonchi, stridor Cardiovascular Exam: Present: regular rate, normal rhythm, normal heart sounds. Absent: systolic murmur, diastolic murmur, rubs, gallop, clicks GI/Abdominal exam: Present: soft, normal bowel sounds. Absent: distended, tenderness, guarding, rebound, rigid Extremities exam: Present: normal inspection, full ROM, normal capillary refill. Absent: tenderness, pedal edema, joint swelling, calf tenderness Back exam: Present: normal inspection Neurological exam: Present: alert, oriented X3, CN II-XII intact Psychiatric exam: Present: normal affect, normal mood Skin exam: Present: warm, dry, intact, normal color. Absent: rash Course Vital Signs 04/02/23 04/02/23 14:39 19:01 Temperature 98.5 F Pulse Rate 70 62 Respiratory 18 18 Rate Blood Pressure 121/72 136/79 O2 Sat by Pulse 93 L 98 Oximetry - Reevaluation(s) Reevaluation #1: 04/02/23 17:55 Medical records reviewed Reevaluation #2: 04/02/23 17:55 No recurrent syncope here in the ER Reevaluation #3: 04/02/23 17:55 Patient informed of results and questions answered Reevaluation #4: 04/02/23 14:57 Was pt. sent in by a medical professional or institution (, ALIYA, DELI CUTTER SLICER, urgent care, hospital, or assisted...) When possible be specific @ -no Did you speak to anyone other than the patient for history (EMS, parent, family, police, friend...)? What history was obtained from this source @ -no Did you review nursing and triage notes (agree or disagree)? Why? @ -agree Are old charts reviewed (outside hosp., previous admission, EMS record, old EKG, old radiological studies, urgent care reports/EKG's, assisted records)? Report findings @ -yes Differential Diagnosis (chest pain, altered mental status, abdominal pain women, abdominal pain men, vaginal bleeding, weakness, fever, dyspnea, syncope, headache, dizziness, GI bleed, back pain, seizure, CVA, palpatations, mental health, musculoskeletal)? @ -prior EKG interpreted by me (3pts min.). @ -yes X-rays interpreted by me (1pt min.). @ -no CT interpreted by me (1pt min.). @ -no U/S interpreted by me (1pt. min.). @ -no What testing was considered but not performed or refused? (CT, X-rays, U/S, labs)? Why? @ -none What meds were considered but not given or refused? Why? @ -none Did you discuss the management of the patient with other professionals (milagro long i.e. , ALIYA, DELI CUTTER SLICER, lab, RT, psych nurse, social worker aide, physician relations manager, teacher, airfield engineer officer, machine adjuster leader case trim)? Give summary @ -no Was smoking cessation discussed for >3mins.? @ -no Was critical care preformed (if so, how long)? @ -no Were there social determinants of health that impacted care today? How? (Homelessness, low income, unemployed, alcoholism, drug addiction, transportation, low edu. Level, literacy, decrease access to med. care, assisted, rehab)? @ -none Was there de-escalation of care discussed even if they declined (Discuss DNR or withdrawal of care, Hospice)? DNR status @ -no What co-morbidities impacted this encounter? (DM, HTN, Smoking, COPD, CAD, Cancer, CVA, ARF, Chemo, Hep., AIDS, mental health diagnosis, sleep apnea, morbid obesity)? @ -none Was patient admitted / discharged? Hospital course, mention meds given and route, prescriptions, significant lab abnormalities, going to OR and other pertinent info. @ - 82 male to the emergency department for evaluation with a syncopal event. Patient be admitted for evaluation cause of syncope. Underlying history of COPD hypoxia AMA Undiagnosed new problem with uncertain prognosis? @ -no Drug Therapy requiring intensive monitoring for toxicity (Heparin, Nitro, Insulin, Cardizem)? @ -no Were any procedures done? @ -no Diagnosis/symptom? @ -Syncope Acute, or Chronic, or Acute on Chronic? @ -Acute Uncomplicated (without systemic symptoms) or Complicated (systemic symptoms)? @ -Complicated Side effects of treatment? @ -no Exacerbation, Progression, or Severe Exacerbation? @ -exacerbation Poses a threat to life or bodily function? How? (Chest pain, USA, [place], pneumonia, PE, COPD, DKA, ARF, appy, cholecystitis, CVA, Diverticulitis, Homicidal, Suicidal, threat to staff... and all critical care pts) @ -yes multiple causes of syncope can be Reevaluation #5: 04/02/23 17:55 Differential Syncope: Valvular disease, hypertrophic cardiomyopathy, pulmonary embolism, tamponade, tachycardia, bradycardia, SD, hypovolemia, hemorrhage, dissection, anemia, intracranial hemorrhage, seizure, hypoglycemia, carbon monoxide poisoning, this is not meant to be an all-inclusive list. - Consultations Consultation #1: Spoke with Dr. Loza agrees to admit this patient EKG Findings - EKG Comments: EKG Findings:: EKG is paced 67 OR 179 QRS 202 QTC 517 - EKG Results: EKG: interpreted by ERMD Medical Decision Making - Medical Decision Making 82 male to the emergency department for evaluation with a syncopal event. Patient be admitted for evaluation cause of syncope. Patient is refusing hospital admission and signing out AGAINST MEDICAL ADVICE. Underlying history of COPD hypoxia - Lab Data Result diagrams: 04/02/23 14:47 04/02/23 14:47 Lab Results 04/02/23 04/02/23 04/02/23 Range/Units 14:47 14:47 14:47 WBC 6.3 (3.8-10.6) k/uL RBC 4.99 (4.30-5.90) m/uL Hgb 16.3 (13.0-17.5) gm/dL Hct 50.0 (39.0-53.0) % MCV 100.3 H (80.0-100.0) fL MCH 32.8 (25.0-35.0) pg MCHC 32.7 (31.0-37.0) g/dL RDW 15.3 (11.5-15.5) % Plt Count 137 L (150-450) k/uL MPV 8.6 Neutrophils % 78 % Lymphocytes % 12 % Monocytes % 6 % Eosinophils % 1 % Basophils % 0 % Neutrophils # 4.9 (1.3-7.7) k/uL Lymphocytes # 0.8 L (1.0-4.8) k/uL Monocytes # 0.4 (0-1.0) k/uL Eosinophils # 0.1 (0-0.7) k/uL Basophils # 0.0 (0-0.2) k/uL Macrocytosis Slight PT 11.5 (10.0-12.5) sec INR 1.1 (<1.2) APTT 24.5 (22.0-30.0) sec D-Dimer 0.88 H (<0.60) mg/L FEU Sodium 140 (137-145) mmol/L Potassium 4.0 (3.5-5.1) mmol/L Chloride 105 (98-107) mmol/L Carbon Dioxide 24 (22-30) mmol/L Anion Gap 11 mmol/L BUN 36 H (9-20) mg/dL Creatinine 1.91 H (0.66-1.25) mg/dL Est GFR (CKD-EPI)AfAm 37 (>60 ml/min/1.73 sqM) Est GFR (CKD-EPI)NonAf 32 (>60 ml/min/1.73 sqM) Glucose 156 H (74-99) mg/dL Plasma Lactic Acid Ronald (0.7-2.0) mmol/L Calcium 9.0 (8.4-10.2) mg/dL Phosphorus 4.1 (2.5-4.5) mg/dL Magnesium 1.5 L (1.6-2.3) mg/dL Total Bilirubin 0.8 (0.2-1.3) mg/dL AST 35 (17-59) U/L ALT 34 (4-49) U/L Alkaline Phosphatase 78 (38-126) U/L Troponin I (0.000-0.034) ng/mL NT-Pro-B Natriuret Pep 433 pg/mL Total Protein 7.2 (6.3-8.2) g/dL Albumin 4.1 (3.5-5.0) g/dL 04/02/23 04/02/23 Range/Units 14:47 14:47 WBC (3.8-10.6) k/uL RBC (4.30-5.90) m/uL Hgb (13.0-17.5) gm/dL Hct (39.0-53.0) % MCV (80.0-100.0) fL MCH (25.0-35.0) pg MCHC (31.0-37.0) g/dL RDW (11.5-15.5) % Plt Count (150-450) k/uL MPV Neutrophils % % Lymphocytes % % Monocytes % % Eosinophils % % Basophils % % Neutrophils # (1.3-7.7) k/uL Lymphocytes # (1.0-4.8) k/uL Monocytes # (0-1.0) k/uL Eosinophils # (0-0.7) k/uL Basophils # (0-0.2) k/uL Macrocytosis PT (10.0-12.5) sec INR (<1.2) APTT (22.0-30.0) sec D-Dimer (<0.60) mg/L FEU Sodium (137-145) mmol/L Potassium (3.5-5.1) mmol/L Chloride (98-107) mmol/L Carbon Dioxide (22-30) mmol/L Anion Gap mmol/L BUN (9-20) mg/dL Creatinine (0.66-1.25) mg/dL Est GFR (CKD-EPI)AfAm (>60 ml/min/1.73 sqM) Est GFR (CKD-EPI)NonAf (>60 ml/min/1.73 sqM) Glucose (74-99) mg/dL Plasma Lactic Acid Ronald 1.3 (0.7-2.0) mmol/L Calcium (8.4-10.2) mg/dL Phosphorus (2.5-4.5) mg/dL Magnesium (1.6-2.3) mg/dL Total Bilirubin (0.2-1.3) mg/dL AST (17-59) U/L ALT (4-49) U/L Alkaline Phosphatase (38-126) U/L Troponin I <0.012 (0.000-0.034) ng/mL NT-Pro-B Natriuret Pep pg/mL Total Protein (6.3-8.2) g/dL Albumin (3.5-5.0) g/dL - EKG Data -: EKG Interpreted by Me Disposition Clinical Impression: Dehydration, ANITA on CPAP, CKD (chronic kidney disease) stage 3, GFR 30-59 ml/min, Acute exacerbation of chronic obstructive pulmonary disease, Diastolic congestive heart failure, Syncope Disposition: HOME SELF-CARE Condition: Good Instructions (If sedation given, give patient instructions): Dehydration (ED) Is patient prescribed a controlled substance at d/c from ED?: No Referrals: Farrukh Evans Jr, [Primary Care Provider] - 1-2 days Time of Disposition: 17:55
[2023-04-02 14:54] VITALS: RESP 18; TEMP 98.5
[2023-04-02 15:12] LABS: Basophils % (A) 0 %; Eosinophils # (A) 0.1 k/uL (0-0.7); Eosinophils % (A) 1 %; HGB 16.3 gm/dL (13.0-17.5); Lymphocytes # (A) 0.8 k/uL (1.0-4.8); Lymphocytes % (A) 12 %; MCH 32.8 pg (25.0-35.0); MCHC 32.7 g/dL (31.0-37.0); MCV 100.3 fL (80.0-100.0); Macrocytosis Slight; Mean Platelet Volume 8.6; Monocytes # (A) 0.4 k/uL (0-1.0); Monocytes % (A) 6 %; Neutrophils # (A) 4.9 k/uL (1.3-7.7); Neutrophils % (A) 78 %; Platelet Count 137 k/uL (150-450); RBC 4.99 m/uL (4.30-5.90); RDW 15.3 % (11.5-15.5); WBC 6.3 k/uL (3.8-10.6)
[2023-04-02 15:25] LABS: INR 1.1 (<1.2); Partial Thromboplastin Time 24.5 sec (22.0-30.0); Prothrombin Time 11.5 sec (10.0-12.5)
[2023-04-02 15:26] LABS: ALT 34 U/L (4-49); AST 35 U/L (17-59); African American GFR (CKD) 37 (>60 ml/min/1.73 sqM); Albumin 4.1 g/dL (3.5-5.0); Alkaline Phosphatase 78 U/L (38-126); Anion Gap 11 mmol/L; Blood Urea Nitrogen 36 mg/dL (9-20); Carbon Dioxide 24 mmol/L (22-30); Chloride 105 mmol/L (98-107); Glucose 156 mg/dL (74-99); Magnesium 1.5 mg/dL (1.6-2.3); Non-African American GFR(CKD) 32 (>60 ml/min/1.73 sqM); Phosphorus 4.1 mg/dL (2.5-4.5); Sodium 140 mmol/L (137-145); Total Bilirubin 0.8 mg/dL (0.2-1.3); Total Protein 7.2 g/dL (6.3-8.2)
[2023-04-02 15:35] LABS: NT-Pro-B-Type Natriuretic Pept 433 pg/mL
[2023-04-02] MEDS ORDERED: ONDANSETRON 4 MG/2 ML VIAL IVP PRN (17:49)
[2023-04-02] MEDS ORDERED: MAGNESIUM OXIDE 400 MG TAB PO STA (17:49)
[2023-04-02] MEDS ORDERED: MORPHINE SULFATE 4 MG/ML SYRINGE IV PRN (17:49)
[2023-04-02] MEDS ORDERED: NALOXONE 0.4 MG/ML 1 ML VIAL IV PRN (17:49)
[2023-04-02] MEDS ORDERED: MAGNESIUM SULFATE-D5W PMX 1 GM in DEXTROSE/WATER 1 100ML.BAG IVPB SCH (18:00)
[2023-04-02] MEDS ORDERED: SODIUM CHLORIDE 0.9% 1,000 ML IV SCH (18:00)
[2023-04-02 19:09] VITALS: BP 136/79; PULSE 62
== END 2023-04-02 19:01 | disposition home or self-care (01) ==
LOC: EC 14:18 → 6NMEDSUR 17:52 → UNDOADMOB 17:52 → EC 19:01
DX: I13.0 Hypertensive heart and chronic kidney disease with heart failure and stage 1 through stage 4 chronic kidney disease, or unspecified chronic kidney disease (principal); I50.30 Unspecified diastolic (congestive) heart failure; N18.30 Chronic kidney disease, stage 3 unspecified; J44.1 Chronic obstructive pulmonary disease with (acute) exacerbation; E86.0 Dehydration; G47.33 Obstructive sleep apnea (adult) (pediatric); I49.8 Other specified cardiac arrhythmias; R55 Syncope and collapse; E78.5 Hyperlipidemia, unspecified; Z95.0 Presence of cardiac pacemaker; Z79.899 Other long term (current) drug therapy; Z87.891 Personal history of nicotine dependence; Z79.82 Long term (current) use of aspirin; Z88.2 Allergy status to sulfonamides; Z88.8 Allergy status to other drugs, medicaments and biological substances
CPT/HCPCS: 36415; 80053; 83605; 83735; 83880; 84100; 84484; 85025; 85379; 85610; 85730; 93005; 96360; 96361; 99284

== ENCOUNTER → 2023-11-03 | Outpatient (CLI) | payer MEDICARE ==
[2023-11-03 16:06] LABS: NT-Pro-B-Type Natriuretic Pept 320 pg/mL (0-450)
[2023-11-03 16:11] LABS: ALT 29 U/L (10-49); AST 30 U/L (14-35); Albumin 4.2 g/dL (3.8-4.9); Albumin/Globulin Ratio 1.35 Ratio (1.60-3.17); Alkaline Phosphatase 94 U/L (41-126); BUN/Creat Ratio 18.18 Ratio (12.00-20.00); Blood Urea Nitrogen 30.9 mg/dL (9.0-27.0); Calcium 9.4 mg/dL (8.7-10.3); Carbon Dioxide 25.5 mmol/L (21.6-31.8); Chloride 105 mmol/L (96-109); Globulin 3.1 g/dL (1.6-3.3); Glucose 126 mg/dL (70-110); Potassium 4.3 mmol/L (3.5-5.5); Sodium 142 mmol/L (135-145); Total Bilirubin 0.4 mg/dL (0.3-1.2); Total Protein 7.3 g/dL (6.2-8.2)
== END | disposition home or self-care (01) ==
LOC: LABWHC1 11:05
PROVIDERS: ATTEND Internal Medicine Interventional Cardiology
DX: E78.2 Mixed hyperlipidemia (principal); R06.02 Shortness of breath
CPT/HCPCS: 36415; 80053; 80061; 83880

== ENCOUNTER 2023-11-16 18:13 | Emergency (ER) | payer MEDICARE ==
--- NOTE | 2023-11-16 18:29 | ED ---
General Adult HPI - General Stated complaint: Cardiac Arrest Time Seen by Provider: 11/16/23 18:13 Source: patient, RN notes reviewed, old records reviewed - History of Present Illness Initial comments: This is an 83-year-old male who is brought in by EMS. Patient was a witnessed arrest and CPR was started by bystanders. When EMS arrived the patient was in V-fib and they shocked him 4 different times and every time he came back into V- fib except for the last time he was in PEA and he remained in PEA hallway and. Patient was also given 8 epinephrine 300 mg of amiodarone and another 150 of amiodarone. Patient was also given calcium chloride and bicarb. Patient arrived with no pulse and asystole. Patient was coded for 55 minutes. According to EMS they intubated the patient and route but just prior to arrival the tube slipped out and he continued to bag him after that. - Related Data Home Medications Medication Instructions Recorded Confirmed Aspirin EC [Ecotrin Low Dose] 81 mg PO HS 12/31/15 04/02/23 Doxazosin [Cardura] 4 mg PO BID 12/31/15 04/02/23 Multivit-Min/FA/Lycopen/Lutein 1 tab PO DAILY 12/31/15 04/02/23 [Centrum Silver Tablet] Omeprazole [PriLOSEC] 40 mg PO DAILY 12/31/15 04/02/23 Ezetimibe [Zetia] 10 mg PO MOTUWETHFR 01/28/19 04/02/23 Labetalol HCl [Trandate] 300 mg PO BID 01/28/19 04/02/23 Simvastatin [Zocor] 40 mg PO MOTUWETHFR 01/28/19 04/02/23 Ubidecarenone [Co Q-10] 100 mg PO DAILY 01/28/19 04/02/23 Vitamin B Complex 1 cap PO DAILY 01/28/19 04/02/23 allopurinoL [Zyloprim] 100 mg PO DAILY 01/28/19 04/02/23 Nitroglycerin Sl Tabs [Nitrostat] 0.4 mg SUBLINGUAL Q5M PRN 04/18/20 04/02/23 Albuterol Nebulized [Ventolin 2.5 mg INHALATION RT-QID PRN 11/04/22 04/02/23 Nebulized] Cyanocobalamin [Vitamin B-12] 1,000 mcg PO DAILY 11/04/22 04/02/23 Pregabalin [Lyrica] 100 mg PO HS 11/04/22 04/02/23 lisinopriL [Zestril] 2.5 mg PO HS 11/04/22 04/02/23 tiZANidine HCL [Zanaflex] 4 mg PO HS 11/04/22 04/02/23 Cholecalciferol [Vitamin D3 (25 25 mcg PO DAILY 04/02/23 04/02/23 Mcg = 1000 Iu)] Fluticasone/Umeclidin/Vilanter 1 puff INHALATION RT-DAILY 04/02/23 04/02/23 [Trelegy Ellipta 100-62.5-25] Hydrocortisone Cream 1 applic TOPICAL BID PRN 04/02/23 04/02/23 [Hydrocortisone 2.5% Cream] Ipratropium-Albuterol Nebulize 3 ml INHALATION RT-QID PRN 04/02/23 04/02/23 [Duoneb 0.5 mg-3 mg/3 ml Soln] Ketoconazole 2% Shampoo [Nizoral] 1 applic TOPICAL DAILY PRN 04/02/23 04/02/23 Tacrolimus [Protoptic 0.1%] 1 applic TOPICAL BID PRN 04/02/23 04/02/23 Torsemide [Demadex] 5 mg PO DAILY 04/02/23 04/02/23 Triamcinolone 0.5% Ointment 1 applic TOPICAL BID PRN 04/02/23 04/02/23 hydrALAZINE HCL [Apresoline] 100 mg PO TID 04/02/23 04/02/23 predniSONE 5 mg PO DAILY 04/02/23 04/02/23 Allergies Allergy/AdvReac Type Severity Reaction Status Date / Time lorazepam [From Ativan] Allergy Hyper, Verified 04/02/23 15:53 anxiety Sulfa (Sulfonamide Allergy Rash/Hives Verified 04/02/23 15:53 Antibiotics) Review of Systems ROS Statement: Those systems with pertinent positive or pertinent negative responses have been documented in the HPI. ROS Other: All systems not noted in ROS Statement are negative. Past Medical History Past Medical History: Hyperlipidemia, Hypertension Additional Past Medical History / Comment(s): pancreatitis, back spasms with activity History of Any Multi-Drug Resistant Organisms: None Reported Past Surgical History: Cholecystectomy Additional Past Surgical History / Comment(s): pacemaker Past Anesthesia/Blood Transfusion Reactions: No Reported Reaction Additional Past Anesthesia/Blood Transfusion Reaction / Comment(s): difficult intubation-needs pediatric tube due to narrow opening Date of Last Stent Placement:: unknown Type of Cardiac Device: Permanent Pacemaker Device Placement Date:: 2018 replacement Past Psychological History: No Psychological Hx Reported Smoking Status: Former smoker Past Alcohol Use History: None Reported, Daily Past Drug Use History: None Reported - Past Family History Mother Family Medical History: No Reported History General Exam - General Exam Comments Initial Comments: GENERAL: Patient is well-developed and well-nourished. Patient is being currently bagged and there is no spontaneous movement. ENT: No gross abnormalities noted EYES: Pupils are fixed and dilated PULMONARY: No spontaneous respirations. CARDIOVASCULAR: Patient has no heart sounds and there are no pulses ABDOMEN: Nondistended no gross abnormalities SKIN: Skin is clear with no lesions or rashes and otherwise unremarkable. NEUROLOGIC: Patient is unresponsive Course Vital Signs 11/16/23 11/16/23 18:15 20:00 Pulse Rate 0 L 0 L Medical Decision Making - Medical Decision Making Was pt. sent in by a medical professional or institution (, PA, ZOO DIRECTOR, urgent care, hospital, or intermediate...) When possible be specific @ -No Did you speak to anyone other than the patient for history (EMS, parent, family, police, friend...)? What history was obtained from this source @ -EMS gave all of the history Did you review nursing and triage notes (agree or disagree)? Why? @ -I reviewed and agree with nursing and triage notes Were old charts reviewed (outside hosp., previous admission, EMS record, old EKG, old radiological studies, urgent care reports/EKG's, intermediate records)? Report findings @ -No old charts were reviewed Differential Diagnosis (chest pain, altered mental status, abdominal pain women, abdominal pain men, vaginal bleeding, weakness, fever, dyspnea, syncope, headache, dizziness, GI bleed, back pain, seizure, CVA, palpatations, mental health, musculoskeletal)? @ -Differential Syncope: Valvular disease, hypertrophic cardiomyopathy, pulmonary embolism, tamponade, tachycardia, bradycardia, [place], hypovolemia, hemorrhage, dissection, anemia, intracranial hemorrhage, seizure, hypoglycemia, carbon monoxide poisoning, this is not meant to be an all-inclusive list. EKG interpreted by me (3pts min.). @ -As above X-rays interpreted by me (1pt min.). @ -None done CT interpreted by me (1pt min.). @ -None done U/S interpreted by me (1pt. min.). @ -None done What testing was considered but not performed or refused? (CT, X-rays, U/S, labs)? Why? @ -None What meds were considered but not given or refused? Why? @ -None Did you discuss the management of the patient with other professionals (professionals i.e. DrAlexis, PA, ZOO DIRECTOR, lab, RT, psych nurse, social services specialist, photographer model, teacher, hydrological technical officer, shoe caser)? Give summary @ -No Was smoking cessation discussed for >3mins.? @ -No Was critical care preformed (if so, how long)? @ -No Were there social determinants of health that impacted care today? How? (Homelessness, low income, unemployed, alcoholism, drug addiction, transportation, low edu. Level, literacy, decrease access to med. care, intermediate, rehab)? @ -No Was there de-escalation of care discussed even if they declined (Discuss DNR or withdrawal of care, Hospice)? DNR status @ -No What co-morbidities impacted this encounter? (DM, HTN, Smoking, COPD, CAD, Cancer, CVA, ARF, Chemo, Hep., AIDS, mental health diagnosis, sleep apnea, morbid obesity)? @ -None Was patient admitted / discharged? Hospital course, mention meds given and route, prescriptions, significant lab abnormalities, going to OR and other pertinent info. @ -Upon arrival patient was asystole and no spontaneous respirations. Patient had already received 4 shocks for V-fib and 8 epinephrine as well as 300 of amiodarone and another 150 of amiodarone as well as calcium chloride and sodium bicarb. At this point in time the patient been down 55 minutes and I pronounced the patient at 1815 Undiagnosed new problem with uncertain prognosis? @ -No Drug Therapy requiring intensive monitoring for toxicity (Heparin, Nitro, Insulin, Cardizem)? @ -No Were any procedures done? @ -No Diagnosis/symptom? @ -Cardiopulmonary arrest Acute, or Chronic, or Acute on Chronic? @ -Acute Uncomplicated (without systemic symptoms) or Complicated (systemic symptoms)? @ -Complicated Side effects of treatment? @ -No Exacerbation, Progression, or Severe Exacerbation? @ -No Poses a threat to life or bodily function? How? (Chest pain, [place], [place], pneumonia, PE, COPD, DKA, ARF, appy, cholecystitis, CVA, Diverticulitis, Homicidal, Suicidal, threat to staff... and all critical care pts) @ -Yes this led to the patient's Disposition Clinical Impression: Cardiopulmonary arrest Disposition: Referrals: Farrukh Evans Jr, DO [Primary Care Provider] - 1-2 days Time of Disposition: 18:28 Preliminary Cause of : cardiac
[2023-11-16 21:52] VITALS: PULSE 0
== END 2023-11-16 20:00 | disposition expired ==
LOC: EC 18:13
DX: I46.9 Cardiac arrest, cause unspecified (principal); Z87.891 Personal history of nicotine dependence; Z88.2 Allergy status to sulfonamides; Z88.8 Allergy status to other drugs, medicaments and biological substances; Z90.49 Acquired absence of other specified parts of digestive tract; Z95.0 Presence of cardiac pacemaker
CPT/HCPCS: 92950; 99285